=== PATIENT | male | born 1945 | race Caucasian/White ===

== ENCOUNTER → 2020-07-09 14:33 | Outpatient (CLI) | payer MEDICARE, OTHER, SELFPAY ==
--- NOTE | 2020-07-09 14:36 | DI.RAD.S_ITS ---
PROCEDURE: XR LUMBAR SPINE 2-3V INDICATIONS: Spinal arthritis TECHNIQUE: 3 views of the lumbar spine were acquired. COMPARISON: None. FINDINGS: Bones: 5 xra-lvi-nvzboik vertebrae are present. There is normal bony alignment. No vertebral body compression fractures. No suspicious bony lesions. There is disc space narrowing and endplate degenerative changes at L4-5. There is facet arthrosis in the lower lumbar spine. Soft tissues: Overlying bowel gas pattern is normal. No suspicious soft tissue calcifications. The aorta has atherosclerotic calcifications. IMPRESSION: 1. Degenerative disc disease at L4-5. 2. Facet arthrosis at L4-5 and L5-S1. Dictated by: Manoj Velasquez M.D. on 07/09/2020 at 18:28 Approved by: Manoj Velasquez M.D. on 07/09/2020 at 18:29
== END ==
PROVIDERS: PCP Student in an Organized Health Care Education/Training Program; Referring Provider Student in an Organized Health Care Education/Training Program; Visit Provider Student in an Organized Health Care Education/Training Program
DX: M81.0 Age-related osteoporosis without current pathological fracture (principal)
CPT/HCPCS: 72100

== ENCOUNTER 2020-08-11 09:28 | Day surgery (SDC) | payer MEDICARE, OTHER, SELFPAY ==
[2020-08-04 14:03] VITALS: BMI 24.0
[2020-08-11] VITALS (11 sets, daily range): BP systolic 92–124; BP diastolic 60–80; PULSE 78–90; RESP 12–20; TEMP 36.3–36.7; O2SAT 92–98; BMI 24.0
[2020-08-11] MEDS: LACTATED RINGERS 1,000 ML 42 ML IV (09:49)
[2020-08-11 10:04] LABS: COVID19 -Nasal RAPID Negative (Negative)
--- NOTE | 2020-08-11 11:10 | PM.PREOP ---
Pre-operative Note Interval Note History & Physical reviewed/Exam performed by Physician: Yes Changes to H&P: No
[2020-08-11] MEDS: CLINDAMYCIN 900 MG/50 ML PIGGYBACK 50 MG IV (11:35)
--- NOTE | 2020-08-11 11:52 | SUR.OPER ---
Supine on padded OR bed, head on pillow, arms secured on padded arm boards at <90 degrees abduction, legs uncrossed, safety belt at thigh, tape over blanket over lower legs, gel pad under bilateral heels.
[2020-08-11] MEDS: BUPIVACAINE 0.5% (PF) VIAL 30 ML INJ (11:56)
--- NOTE | 2020-08-11 13:04 | P.OP_ITS ---
Operative Date/Time/Diagnoses Date of procedure: 08/11/20 Time of procedure: 13:04 Pre-op diagnosis: Right inguinal hernia Post-op diagnosis: same Procedure & Clinicians Procedure: Open right inguinal hernia repair with mesh Same procedure as scheduled: Yes Indications: Reducible inguinal hernia Surgeon: Mariano Smart Yes if Unassisted: Yes Anesthesia Type: General Operative Notes Findings: Direct floor defect. No indirect hernia Estimated Blood Loss (mL): 20 Procedure in detail: The patient was placed supine on the table and bilateral lower extremity compression devices were applied. Anesthesia was induced they were intubated with an LMA and received 2g of Ancef. A time-out was performed. They were prepped and draped in sterile fashion. The right external inguinal ring and the anterior superior iliac crest were identified and marked. 1 finger breath above the inguinal ligament the skin was infiltrated with 0.25% bupivacaine. The skin incision was made here and the subcutaneous tissues were divided with electrocautery exposing the external oblique aponeurosis which was then opened along the direction of its fibers. Using blunt dissection the internal oblique aporneurosis was from the external oblique upper leaflet to identify the iliohypogastric nerve. Using a kittner the cord was c arefully dissected away from the inguinal canal adjacent to the pubic tubercle. The cord including the vas deferens, testicular bloody supply, ilioguinal and genital nerve were encircled with a [place] drain. A large direct floor defect was identified and it was reduced into the abdomen and the internal oblique aporneuorsis was approximated to the inguinal ligament with Ethibond suture to reapproximate the floor over a plug of mesh. The cremasteric fibers surrounding the cord were divided using electrocautery adjacent to the internal ring.. The vas deferens and the testicular vessels were preserved and protected. There was no indirect hernia. I selected a 7x 15 cm lightweight Pro Loop hernia mesh. The inferior medial aspect of the mesh was anchored to insertion of the rectus muscle to the pubic tubercle such that there was approximately 2 cm of tubercle overlap with Ethibond and then was run continuously along the inferior edge of the mesh to the shelving edge of the inguinal ligament. Interrupted 3 0 Vicryl suture was used to anchor the superior aspect of the mesh to the conjoined tendon in several places. The tails were then reapproximated loosely around the spermatic cord. The tails of the mesh were then tucked under the external oblique aponeurosis. The repair was checked for hemostasis. The wound was irrigated with sterile saline. The external oblique aponeurosis was reapproximated in a running fashion using 3 0 Vicryl. The subcutaneous tissues were reapproximated with 3 0 Vicryl skin closed with 4 0 Monocryl followed by the application of Dermabond. At the end of the operation I ensured that both testicles were within the scrotum. The sponge instrument count at the end operation was correct. The patient emerged from anesthesia was extubated and tr ansferred to the postoperative care unit in stable condition. A total of 30 ml of of 0.25% bupivicaine was used to infiltrate the skin. Complications: none Post-operative Condition: stable Disposition: same day surgery
[2020-08-11] MEDS: OXYCODONE IR 5 MG TABLET PO (13:07)
[2020-08-11] MEDS: ACETAMINOPHEN 325 MG TABLET 650 MG PO (13:07)
[2020-08-11] MEDS: ONDANSETRON 4 MG/2 ML INJ IV (13:34)
== END 2020-08-11 13:54 | disposition home or self-care (01) ==
PROVIDERS: PCP Student in an Organized Health Care Education/Training Program; Referring Provider Surgery; Visit Provider Surgery
PROC: (CPT 49505; principal; 2020-08-11 10:45)
DX: K40.90 Unilateral inguinal hernia, without obstruction or gangrene, not specified as recurrent (principal); Z20.822 Contact with and (suspected) exposure to COVID-19; I25.10 Atherosclerotic heart disease of native coronary artery without angina pectoris
CPT/HCPCS: 49505; 87635; C1781; J1100; J1885; J2250; J2405; J2704; J3010

== ENCOUNTER → 2020-09-18 14:39 | Outpatient (CLI) | payer MEDICARE, OTHER, SELFPAY ==
[2020-09-18 15:31] LABS: COVID19 -Nasal RAPID Negative (Negative)
== END ==
PROVIDERS: PCP Student in an Organized Health Care Education/Training Program; Visit Provider Physician Assistant
DX: Z20.822 Contact with and (suspected) exposure to COVID-19 (principal); R05 Cough
CPT/HCPCS: 87635

== ENCOUNTER → 2021-10-26 09:08 | Outpatient (CLI) | payer MEDICARE, OTHER, SELFPAY ==
--- NOTE | 2021-10-26 09:09 | DI.ECHO.S_ITS ---
[facility] +---------+ [facility] +---------+ : : [address] : : : : [id number] : : : : Phone: [phone]+ Echocardiogram Report + + :Name: RIC TINOCO Study Date: 10/26/2021 Height: 63 in : :[facility] ReadingLocation: Weight: 138 lb : : Gender: Male BSA: 1.7 m2 : :: 1945 Age: 76 yrs BP: 139/88 mmHg: :Reason For Study: DYPSNEA : :Ordering Physician: EMELYN, : :HIREN Performed By: Pam Hester : :Referring: HIREN DUNAWAY : + + Interpretation Summary The ejection fraction is estimated to be 55-60%. There are no obvious focal wall motion abnormalities noted but poor endocardial definition reduces the sensitivity for the detection of such. There is mild tricuspid regurgitation. The right ventricular systolic pressure is estimated to be at least 26 mmHg based on an estimated right atrial pressure of 3 mm Hg. Procedure: A two-dimensional transthoracic echocardiogram with color flow and Doppler was performed. The study quality was technically adequate. There is no prior echocardiogram noted for this patient. The patient was in sinus rhythm with heart rates between 73-83 bpm during the exam. Left Ventricle: The left ventricular cavity is small. There is normal left ventricular wall thickness. The ejection fraction is estimated to be 55-60%. There are no obvious focal wall motion abnormalities noted but poor endocardial definition reduces the sensitivity for the detection of such. Right Ventricle: The right ventricle is normal in size and function. Atria: The left atrial size is normal. Right atrial size is normal. There is no Doppler evidence for an interatrial shunt. Mitral Valve: The mitral valve is normal in structure and function. There is trace mitral regurgitation. Aortic Valve: The aortic valve is trileaflet. The aortic valve opens well. There is no aortic valve stenosis. No aortic regurgitation is present. Tricuspid Valve: The tricuspid valve is normal in structure and function. There is mild tricuspid regurgitation. The right ventricular systolic pressure is estimated to be at least 26 mmHg based on an estimated right atrial pressure of 3 mm Hg. Pulmonic Valve: The pulmonic valve is not well visualized. There is no pulmonic valvular regurgitation. Great Vessels: The aortic root is normal size. The dimensions of the ascending aorta are normal. The IVC is of normal diameter and collapses greater than 50% with a sniff. This suggests a low right atrial pressure of 3 mm Hg. Pericardium/ Pleura There is no pericardial effusion. There is no pleural effusion. MMode/2D Measurements & Calculations LVIDd: 3.8 cm LVOT diam: 2.0 cm LVIDs: 2.9 cm Ao root diam: 3.7 cm FS: 25.1 % asc Aorta Diam: 3.1 cm IVSd: 1.0 cm Ao Arch Diam (Prox Trans): 2.3 cm LVPWd: 0.91 cm LV tarn. diameter/BSA (cm/m^2): 2.3 LV sys. diameter/BSA (cm/m^2): 1.7 LA A2 area: 13.5 cm2 RA long axis: 4.3 cm LA A4 area: 13.6 cm2 RA area: 12.7 cm2 LA length (vol): 4.5 cm RA vol: 31.7 ml LA vol: 34.9 ml RA : 19.2 ml/m2 LA vol index: 21.2 ml/m2 IVC diam: 2.0 cm RVD1 (basal): 3.7 cm RVD2 (mid): 3.0 cm TAPSE: 1.8 cm Doppler Measurements & Calculations Ao V2 max: 114.4 cm/sec LVOT Max Alonso: 95.2 cm/sec Ao V2 mean: 81.0 cm/sec LV V1 max P.6 mmHg Ao max P.2 mmHg LV V1 VTI: 19.5 cm Ao mean P.8 mmHg EDDI(I,D): 2.1 cm2 Ao V2 VTI: 27.7 cm EDDI(V,D): 2.5 cm2 sev ratio: 0.70 EDDI indexed to BSA (cm^2/m^2): 1.3 MV E max alonso: 76.1 cm/sec TR max alonso: 240.4 cm/sec MV A max alonso: 101.3 cm/sec TR max P.1 mmHg MV E/A: 0.75 PA V2 max: 81.1 cm/sec Med Peak E' Alonso: 7.2 cm/sec PA V2 mean: 55.5 cm/sec E/E' med: 10.6 PA mean P.4 mmHg Lat Peak E' Alonso: 8.1 cm/sec PA pr(Accel): 36.2 mmHg E/E' lat: 9.4 E/e' average: 10.0 MV dec time: 0.24 sec SV(LVOT): 58.8 ml Reading Physician:04:23 PM
== END ==
PROVIDERS: PCP Student in an Organized Health Care Education/Training Program; Referring Provider Student in an Organized Health Care Education/Training Program; Visit Provider Student in an Organized Health Care Education/Training Program
DX: I25.119 Atherosclerotic heart disease of native coronary artery with unspecified angina pectoris (principal); R06.09 Other forms of dyspnea; I07.1 Rheumatic tricuspid insufficiency
CPT/HCPCS: 93306

== ENCOUNTER 2022-04-18 12:42 | Emergency (ER) | payer MEDICARE, OTHER, SELFPAY ==
[2022-04-18 12:54] VITALS: BP 133/78; PULSE 111; RESP 28; TEMP 37; O2SAT 92; BMI 23.9
--- NOTE | 2022-04-18 12:59 | DI.RAD.S_ITS ---
PROCEDURE: XR CHEST 1V INDICATIONS: Shortness of breath TECHNIQUE: One view of the chest was acquired. COMPARISON: None. FINDINGS: Surgical changes and devices: Left upper quadrant clips. Lungs and pleura: Lungs are clear. No pleural effusions or pneumothorax. Mediastinum: Mediastinal contours appear normal. Heart size is normal. Bones and chest wall: No suspicious bony lesions. Overlying soft tissues appear unremarkable. IMPRESSION: No evidence acute pulmonary process. Dictated by: Miguel Campoverde M.D. on 04/18/2022 at 13:25 Approved by: Miguel Campoverde M.D. on 04/18/2022 at 13:25
[2022-04-18] MEDS: SODIUM CHLORIDE 0.9% 1,000 ML 1000 ML IV (13:40)
[2022-04-18 13:49] LABS: Add Manual Diff / Slide Review NO; Basophils Absolute Auto 100 /uL (0-100); Basophils Percent Auto 0.2 % (0-2); Eosinophils Absolute Auto 100 /uL (0-450); Eosinophils Percent Auto 0.7 % (2-4); Hematocrit 38.6 % (41-53); Lymphocytes Absolute Auto 12200 /uL (1100-4500); Lymphocytes Percent Auto 57.2 % (25-40); Mean Corpuscular HGB Conc 33.6 % (30-36); Mean Corpuscular Hemoglobin 30.6 PG (26-34); Mean Corpuscular Volume 91.2 fL (80-100); Monocytes Absolute Auto 500 /uL (0-900); Monocytes Percent Auto 2.4 % (3-14); Neutrophils Absolute Auto 8400 /uL (1500-7000); Neutrophils Percent Auto 39.5 % (50-75); Platelet Count 192 X10^3/uL (150-400); Red Blood Cell Count 4.24 X10^6/uL (4.5-5.9); Red Cell Distribution Width 12.6 % (11.6-14.8); White Blood Cell Count 21.4 X10^3/uL (4.5-11.0)
[2022-04-18 13:57] LABS: INR 1.1 (0.9-1.3); Prothrombin Time 13.1 SECONDS (10.1-12.7)
[2022-04-18 14:00] LABS: PTT Partial Thromboplastin Tim 29 SECONDS (26-36)
[2022-04-18 14:01] LABS: Lactate (Lactic Acid) 1.3 mmol/L (0.7-2.1)
[2022-04-18 14:04] LABS: Alanine Aminotransferase 22 IU/L (<50); Albumin Globulin Ratio 1.3 (1.0-2.8); Alkaline Phosphatase 162 U/L (38-126); Aspartate Aminotransferase 27 IU/L (17-59); BUN Creatinine Ratio 16.1 (6-22); Bilirubin Total 0.6 mg/dL (0.2-1.3); Blood Urea Nitrogen 10 mg/dL (9-20); Calcium 8.5 mg/dL (8.4-10.2); Carbon Dioxide 24 mmol/L (22-32); Chloride 94 mmol/L (98-107); Creatine Kinase 113 U/L (55-170); Estimated Glomerular Filt Rate > 60 mL/min (>60); Globulin 3.2 g/dL (1.7-4.1); Glucose 219 mg/dL (80-110); HEMOLYSIS < 15 (0-50); Lipase 16 U/L (23-300); Potassium 3.9 mmol/L (3.4-5.1); Sodium 131 mmol/L (137-145); Total Protein 7.2 g/dL (6.3-8.2)
[2022-04-18 14:15] LABS: NT-proBNP (BNP-Adult 18+) 98 pg/mL (<450); Troponin I < 0.012 ng/mL (0.01-0.034)
[2022-04-18 14:17] LABS: Troponin I < 0.012 ng/mL (0.01-0.034)
[2022-04-18 14:20] LABS: CKMB % Relative Index 1.3 % (1.5-5.0); Creatine Kinase MB 1.51 ng/mL (<2.37)
[2022-04-18 14:22] LABS: Procalcitonin 0.25 ng/mL (<0.5)
[2022-04-18 14:32] LABS: Adenovirus Not Detected (Not Detect); B. parapertussis Not Detected (Not Detecte); Bordetella pertussis Not Detected (Not Detecte); Chlamydophila pneumoniae Not Detected (Not Detect); Coronavirus 229E Not Detected (Not Detect); Coronavirus HKU1 Not Detected (Not Detect); Coronavirus NL 63 Not Detected (Not Detect); Coronavirus OC43 Not Detected (Not Detect); Human Metapneumovirus Detected (Not Detect); Human Rhinovirus/Enterovirus Not Detected (Not Detect); Influenza A Not Detected (Not Detect); Influenza B Not Detected (Not Detect); Mycoplasma pneumoniae Not Detected (Not Detect); Parainfluenza Virus 1 Not Detected (Not Detect); Parainfluenza Virus 2 Not Detected (Not Detect); Parainfluenza Virus 3 Not Detected (Not Detect); Parainfluenza Virus 4 Not Detected (Not Detect); Respiratory Syncytial Virus Not Detected (Not Detect); SARS- CoV-2 Not Detected (Not Detecte)
[2022-04-18] MEDS: PIPERACILLIN/TAZO 4.5 GM in SODIUM CHLORIDE 0.9% 100 ML IV (15:02)
[2022-04-18] MEDS: SODIUM CHLORIDE 0.9% 1,837.05 ML 612.35 ML IV (15:02)
[2022-04-18 15:05] LABS: Amorphous Sediment Urine 1+; Bacteria Urine None Seen; Culture Indicated Urine Cult Not Indicated; Mucus Urine 1+ (Negative); RBC Urine 1-5/HPF (0-5/HPF); WBC Urine None Seen (0-5/HPF)
--- NOTE | 2022-04-18 15:17 | DI.CT.S_ITS ---
PROCEDURE: CT CHEST ABD PEL W CON INDICATIONS: sepsis TECHNIQUE: After the administration of intravenous contrast, 5 mm thick sections acquired from the lung apices to the symphysis. 5 mm coronal and sagittal reformats were performed, with additional 7 mm MIP reformats through the lungs. For radiation dose reduction, the following was used: automated exposure control, adjustment of mA and/or kV according to patient size. COMPARISON: None. FINDINGS: Image quality: Excellent. CHEST: Lungs and pleura: A few solid pulmonary nodules are present, largest measuring 5 millimeters in the right middle lobe (5/207). Confluent centrilobular emphysema. Mediastinum: Borderline enlarged mediastinal lymph nodes. Moderate coronary calcifications. No hiatal hernia. Heart size is within normal limits. Chest wall: No axillary or supraclavicular adenopathy by size criteria. Thyroid gland is unremarkable . ABDOMEN: Solid organs: Liver is normal in size and enhancement. Gallbladder is absent . Biliary system is non dilated. Pancreas enhances normally. Spleen is normal in size and enhancement. No adrenal nodules. Kidneys demonstrate normal size and enhancement, without hydronephrosis. Peritoneum and bowel: Bowel loops demonstrate normal wall thickness and caliber. No free fluid or air. Prior Whipple. Nodes and vessels: No retroperitoneal or mesenteric adenopathy by size criteria. Aorta and inferior vena cava are normal in size. Miscellaneous: Small ventral wall hernia containing fat. Surgical clips within the abdomen. PELVIS: Genitourinary: Bladder wall thickness is normal. Miscellaneous: No inguinal hernias or adenopathy. Bones: No suspicious bony lesions. No vertebral body compression fractures. IMPRESSION: No evidence of acute infection. Scattered pulmonary nodules, largest measuring 5 millimeters. These are nonspecific in the presumed history of malignancy. Dictated by: Kristian Delong M.D. on 04/18/2022 at 15:58 Approved by: Kristian Delong M.D. on 04/18/2022 at 16:10
[2022-04-18] MEDS: VANCOMYCIN 1,000 MG/200 ML PIGGYBACK 200 MG IV (15:41)
--- NOTE | 2022-04-18 15:55 | ED_ITS ---
HPI - SOB/Dyspnea <Samuel Rivera PA-C - Last Filed: 04/18/22 20:10> General Chief Complaint: Shortness of Breath/Dyspnea Stated Complaint: SOB, Cough x4days Time Seen by Provider: 04/18/22 13:08 Mode of arrival: Family Vehicle History of Present Illness HPI Narrative: 77-year-old male with past medical history pancreatitis, coronary artery disease, stable angina presents to the ED with 4 days of fever, chills, diarrhea, shortness of breath, cough. Patient denies chest pain, nausea, vomiting, dysuria, lightheadedness, dizziness, syncope. Patient endorses 8-9 episodes of diarrhea a day. Endorses reduced appetite. Related Data Home Medications Medication Instructions Recorded Confirmed multivitamin 1 tab PO DAILY 07/22/20 04/14/22 omega-3 fatty acids 1,000 mg 1,000 mg PO DAILY 07/22/20 04/14/22 capsule (Fish Oil Concentrate) nitroglycerin 0.3 mg sublingual 0.3 mg sublingual Q5M PRN 09/07/21 04/14/22 tablet Previous Rx's Medication Instructions Recorded benzonatate 200 mg capsule 200 mg PO TID PRN cough #30 caps 04/18/22 Allergies Allergy/AdvReac Type Severity Reaction Status Date / Time ciprofloxacin [From Cipro] Allergy Unknown Verified 04/18/22 12:58 hydroxyzine [From Vistaril] Allergy Unknown Verified 04/18/22 12:58 metronidazole [From Flagyl] Allergy Unknown Verified 04/18/22 12:58 Penicillins Allergy Unknown Verified 04/18/22 12:58 promethazine AdvReac Intermediate Confusion Verified 04/18/22 12:58 levofloxacin [From Levaquin] AdvReac Mild Verified 04/18/22 12:58 Review of Systems <Samuel Rivera PA-C - Last Filed: 04/18/22 20:10> Review of Systems ROS Unobtainable: All systems reviewed & are unremarkable except as noted in HPI and below Constitutional Constitutional: Reports chills, Reports fatigue, Reports fever(s), Denies frequent falls, Denies lethargy and Denies weakness Eyes Eyes: Denies change in vision, Denies eye discharge, Denies irritation and Denies loss of vision ENT Ears, Nose, Mouth, and Throat: Denies change in voice, Denies dizziness, Denies neck pain, Denies sore throat and Denies throat swelling Cardiovascular Cardiovascular: Denies chest pain, Denies irregular heart rhythm, Denies lightheadedness, Denies palpitations, Reports dyspnea, Denies dyspnea on exertion and Denies orthopnea Respiratory Respiratory: Reports cough, Reports dyspnea, Denies dyspnea on exertion and Denies wheezing Gastrointestinal Gastrointestinal: Denies abdominal pain, Denies change in bowel habits, Reports diarrhea, Denies nausea and Denies vomiting Genitourinary Genitourinary: Denies hematuria, Denies dysuria, Denies flank pain, Denies urinary incontinence and Denies urinary urgency Musculoskeletal Musculoskeletal: Denies back pain, Denies muscle weakness, Denies neck pain, Denies numbness and Denies tingling Integumentary/Breasts Skin/Breast: Denies pruritus, Denies erythema, Denies rash and Denies wounds Neurologic Neurologic: Denies behavioral changes, Denies confusion, Denies dizziness, Denies frequent falls, Denies loss of vision, Denies numbness, Denies tingling and Denies weakness Psychiatric Psychiatric: Denies anxiety, Denies behavioral changes, Denies confusion, Denies depression, Denies homicidal ideation and Denies suicidal ideation Endocrine Endocrine: Reports fatigue, Denies flushing and Denies palpitations Hematologic/Lymphatic Hematologic/Lymphatic: Denies easy bruising Allergic/Immunologic Allergic/Immunologic: Denies urticaria, Denies throat swelling and Denies wheezing Patient History <Samuel Rivera PA-C - Last Filed: 04/18/22 20:10> Medical History Anemia (~2004) Cataracts, bilateral (~2013) Chicken pox (~195) Chronic back pain (~2011) Coronary artery disease (~2004) Direct inguinal hernia of right side Eczema (~1999) Kidney stones (~2004) Measles Mumps Osteoarthritis of lumbar spine Pancreas [place] pancreas Pancreatic cancer (~1999) Pancreatitis (~1999) Panic attacks Recurrent pancreatitis Shift work sleep disorder Shoulder pain (~2011) Skin cancer (~2004) Tinnitus (~2009) Surgical History Anesthesia History of cholecystectomy (~1999) History of right knee surgery (~2019) History of shoulder surgery (~1977) History of surgery (~2000) S/P left rotator cuff repair (~2013) Family History Father Cancer Mother Diabetes mellitus Dementia History of heart disease Hyperlipidemia Hypertension Mental health problem Stroke Gallstones Breast cancer Sister Overweight Sister Overweight Melanoma Knee problem Grandmother Cancer Hypertension Mental health problem Grandfather No problems noted. Grandmother History of heart disease Hypertension Stroke Son Mental health problem Depression PTSD (post-traumatic stress disorder) Social History marital status: unknown household members: none occupational status: previously employed Smoking Status: Former smoker alcohol intake: never Smoking Status: Former smoker Substance Use Type: does not use Exam <Samuel Rivera PA-C - Last Filed: 04/18/22 20:10> Narrative Exam Narrative: Const General:?cooperative, healthy appearing and comfortable HENMS Head:?normal to inspection Ears:?hearing grossly normal bilaterally Nose:?external nose normal Face and sinus:?normal facial exam and sinuses nontender Mouth:?oral mucosae normal Throat:?posterior oropharynx normal Eyes General:?appearance normal, both eyes and all related structures Neck Neck:?normal visual inspection and no lymphadenopathy noted Resp Effort & Inspection:?normal respiratory effort Auscultation:?clear to auscultation bilaterally Cardio Rate:?regular rate Rhythm:?regular rhythm GI Abdomen is soft, nondistended. Mildly tender to palpation in the right upper quadrant. Neuro General:?patient alert, patient awake and patient oriented x3 Initial Vital Signs Initial Vital Signs: Vital Signs Temperature 98.6 F 04/18/22 12:54 Pulse Rate 111 H 04/18/22 12:54 Respiratory Rate 28 H 04/18/22 12:54 Blood Pressure 133/78 04/18/22 12:54 Pulse Oximetry 92 04/18/22 12:54 Oxygen Delivery Method Room Air 04/18/22 12:54 <Artur Camacho DO - Last Filed: 04/25/22 07:33> Initial Vital Signs Initial Vital Signs: Vital Signs Temperature 98.6 F 04/18/22 12:54 Pulse Rate 111 H 04/18/22 12:54 Respiratory Rate 28 H 04/18/22 12:54 Blood Pressure 133/78 04/18/22 12:54 Pulse Oximetry 92 04/18/22 12:54 Oxygen Delivery Method Room Air 04/18/22 12:54 Course <Samuel Rivera PA-C - Last Filed: 04/18/22 20:10> Orders Ordered: Discontinued Medications Sodium Chloride (Normal Saline 0.9%) 1,000 mls @ 1,000 mls/hr IV BOLUS ONE Stop: 04/18/22 14:01 Last Infusion: 04/18/22 14:46 Dose: 0 mls/hr Documented By: Admin: 04/18/22 13:40 Dose: 1,000 mls/hr Documented By: ASHLEIGH Piperacillin Sod/Tazobactam (Sod 4.5 gm/ Sodium Chloride) 100 mls @ 200 mls/hr IV NOW ONE Stop: 04/18/22 14:31 Last Infusion: 04/18/22 15:40 Dose: 0 mls/hr Documented By: Admin: 04/18/22 15:02 Dose: 200 mls/hr Documented By: ANNAMARIE Vancomycin HCl (Vancomycin) 1,000 mg in 200 mls @ 200 mls/hr IV NOW ONE Stop: 04/18/22 15:30 Last Infusion: 04/18/22 16:52 Dose: 0 mls/hr Documented By: Admin: 04/18/22 15:41 Dose: 200 mls/hr Documented By: LIVAN Sodium Chloride (Normal Saline 0.9%) 1,837.05 mls @ 612.35 mls/hr 30 ml/kg infuse over 3 hr (1837.05 ml) IV NOW ONE Stop: 04/18/22 17:31 Last Infusion: 04/18/22 16:50 Dose: 0 mls/hr Documented By: Admin: 04/18/22 15:02 Dose: 612.35 mls/hr Documented By: ANNAMARIE Ondansetron HCl (Ondansetron 4 Mg/2 Ml Inj) 4 mg IV NOW PRN PRN Reason: Nausea And Vomiting Vital Signs Vital signs: Vital Signs - 8 hr 04/18/22 12:54 04/18/22 16:19 04/18/22 17:17 Temperature 98.6 F Pulse Rate 111 H 103 H 98 H Respiratory Rate 28 H 18 20 Blood Pressure 133/78 129/70 130/64 Pulse Oximetry 92 95 93 Oxygen Delivery Method Room Air Room Air Room Air <Artur Camacho DO - Last Filed: 04/25/22 07:33> Orders Ordered: Discontinued Medications Sodium Chloride (Normal Saline 0.9%) 1,000 mls @ 1,000 mls/hr IV BOLUS ONE Stop: 04/18/22 14:01 Last Infusion: 04/18/22 14:46 Dose: 0 mls/hr Documented By: Admin: 04/18/22 13:40 Dose: 1,000 mls/hr Documented By: ASHLEIGH Piperacillin Sod/Tazobactam (Sod 4.5 gm/ Sodium Chloride) 100 mls @ 200 mls/hr IV NOW ONE Stop: 04/18/22 14:31 Last Infusion: 04/18/22 15:40 Dose: 0 mls/hr Documented By: Admin: 04/18/22 15:02 Dose: 200 mls/hr Documented By: ANNAMARIE Vancomycin HCl (Vancomycin) 1,000 mg in 200 mls @ 200 mls/hr IV NOW ONE Stop: 04/18/22 15:30 Last Infusion: 04/18/22 16:52 Dose: 0 mls/hr Documented By: Admin: 04/18/22 15:41 Dose: 200 mls/hr Documented By: LIVAN Sodium Chloride (Normal Saline 0.9%) 1,837.05 mls @ 612.35 mls/hr 30 ml/kg infuse over 3 hr (1837.05 ml) IV NOW ONE Stop: 04/18/22 17:31 Last Infusion: 04/18/22 16:50 Dose: 0 mls/hr Documented By: Admin: 04/18/22 15:02 Dose: 612.35 mls/hr Documented By: ANNAMARIE Ondansetron HCl (Ondansetron 4 Mg/2 Ml Inj) 4 mg IV NOW PRN PRN Reason: Nausea And Vomiting Vital Signs Vital signs: Vital Signs - 8 hr 04/18/22 12:54 04/18/22 16:19 04/18/22 17:17 Temperature 98.6 F Pulse Rate 111 H 103 H 98 H Respiratory Rate 28 H 18 20 Blood Pressure 133/78 129/70 130/64 Pulse Oximetry 92 95 93 Oxygen Delivery Method Room Air Room Air Room Air MDM - SOB/Dyspnea <Samuel Rivera PA-C - Last Filed: 04/18/22 20:10> Lab Data 04/18/22 13:20 04/18/22 13:20 Labs: Lab Results 04/18/22 04/18/22 04/18/22 Range/Units 13:20 13:20 13:20 WBC 21.4 H (4.5-11.0) X10^3/uL RBC 4.24 L (4.5-5.9) X10^6/uL Hgb 13.0 L (13.5-17.5) g/dL Hct 38.6 L (41-53) % MCV 91.2 (80-100) fL MCH 30.6 (26-34) PG MCHC 33.6 (30-36) % RDW 12.6 (11.6-14.8) % Plt Count 192 (150-400) X10^3/uL Neut % (Auto) 39.5 L (50-75) % Lymph % (Auto) 57.2 H (25-40) % [place] % (Auto) 2.4 L (3-14) % Eos % (Auto) 0.7 L (2-4) % Baso % (Auto) 0.2 (0-2) % Neut # (Auto) 8400 H (6966-0975) /uL Lymph # (Auto) 38087 H (6583-4136) /uL [place] # (Auto) 500 (0-900) /uL Eos # (Auto) 100 (0-450) /uL Baso # (Auto) 100 (0-100) /uL PT (10.1-12.7) SECONDS INR (0.9-1.3) APTT (26-36) SECONDS Sodium 131 L (137-145) mmol/L Potassium 3.9 (3.4-5.1) mmol/L Chloride 94 L (98-107) mmol/L Carbon Dioxide 24 (22-32) mmol/L BUN 10 (9-20) mg/dL Creatinine 0.62 L (0.66-1.25) mg/dL Estimated GFR > 60 (>60) mL/min BUN/Creatinine Ratio 16.1 (6-22) Glucose 219 H (80-110) mg/dL Lactate 1.3 (0.7-2.1) mmol/L Calcium 8.5 (8.4-10.2) mg/dL Total Bilirubin 0.6 (0.2-1.3) mg/dL AST 27 (17-59) IU/L ALT 22 (<50) IU/L Alkaline Phosphatase 162 H (38-126) U/L Total Creatine Kinase (55-170) U/L CK-MB (CK-2) (<2.37) ng/mL CK-MB (CK-2) Rel Index (1.5-5.0) % Troponin I < 0.012 (0.01-0.034) ng/mL NT-Pro-B Natriuret Pep 98 (<450) pg/mL Total Protein 7.2 (6.3-8.2) g/dL Albumin 4.0 (3.5-5.0) g/dL Globulin 3.2 (1.7-4.1) g/dL Albumin/Globulin Ratio 1.3 (1.0-2.8) Lipase (23-300) U/L Procalcitonin (<0.5) ng/mL Urine RBC (0-5/HPF) Urine WBC (0-5/HPF) Amorphous Sediment Urine Bacteria (None) Urine Mucus (Negative) Ur Culture Indicated? Chlamy pneumoniae PCR (Not Detect) Adenovirus (PCR) (Not Detect) B. pertussis DNA (PCR) (Not Detecte) B.parapertussis DNA PCR (Not Detecte) Coronavirus OC43 (PCR) (Not Detect) Coronavirus HKU1 (PCR) (Not Detect) Coronavirus 229E (PCR) (Not Detect) SARS-CoV-2 (PCR) (Not Detecte) Coronavirus NL63 (PCR) (Not Detect) Human Metapneumovir PCR (Not Detect) Influenza Type A (PCR) (Not Detect) Influenza Type B (PCR) (Not Detect) M. pneumoniae (PCR) (Not Detect) Parainfluenza 1 (PCR) (Not Detect) Parainfluenza 2 (PCR) (Not Detect) Parainfluenza 3 (PCR) (Not Detect) Parainfluenza 4 (PCR) (Not Detect) RSV (PCR) (Not Detect) Entero/Rhino (PCR) (Not Detect) 04/18/22 04/18/22 04/18/22 Range/Units 13:20 13:20 13:40 WBC (4.5-11.0) X10^3/uL RBC (4.5-5.9) X10^6/uL Hgb (13.5-17.5) g/dL Hct (41-53) % MCV (80-100) fL MCH (26-34) PG MCHC (30-36) % RDW (11.6-14.8) % Plt Count (150-400) X10^3/uL Neut % (Auto) (50-75) % Lymph % (Auto) (25-40) % [place] % (Auto) (3-14) % Eos % (Auto) (2-4) % Baso % (Auto) (0-2) % Neut # (Auto) (5962-1983) /uL Lymph # (Auto) (1638-9111) /uL [place] # (Auto) (0-900) /uL Eos # (Auto) (0-450) /uL Baso # (Auto) (0-100) /uL PT 13.1 H (10.1-12.7) SECONDS INR 1.1 (0.9-1.3) APTT 29 (26-36) SECONDS Sodium (137-145) mmol/L Potassium (3.4-5.1) mmol/L Chloride (98-107) mmol/L Carbon Dioxide (22-32) mmol/L BUN (9-20) mg/dL Creatinine (0.66-1.25) mg/dL Estimated GFR (>60) mL/min BUN/Creatinine Ratio (6-22) Glucose (80-110) mg/dL Lactate (0.7-2.1) mmol/L Calcium (8.4-10.2) mg/dL Total Bilirubin (0.2-1.3) mg/dL AST (17-59) IU/L ALT (<50) IU/L Alkaline Phosphatase (38-126) U/L Total Creatine Kinase 113 (55-170) U/L CK-MB (CK-2) 1.51 (<2.37) ng/mL CK-MB (CK-2) Rel Index 1.3 L (1.5-5.0) % Troponin I < 0.012 (0.01-0.034) ng/mL NT-Pro-B Natriuret Pep (<450) pg/mL Total Protein (6.3-8.2) g/dL Albumin (3.5-5.0) g/dL Globulin (1.7-4.1) g/dL Albumin/Globulin Ratio (1.0-2.8) Lipase 16 L (23-300) U/L Procalcitonin 0.25 (<0.5) ng/mL Urine RBC (0-5/HPF) Urine WBC (0-5/HPF) Amorphous Sediment Urine Bacteria (None) Urine Mucus (Negative) Ur Culture Indicated? Chlamy pneumoniae PCR Not detected (Not Detect) Adenovirus (PCR) Not detected (Not Detect) B. pertussis DNA (PCR) Not detected (Not Detecte) B.parapertussis DNA PCR Not detected (Not Detecte) Coronavirus OC43 (PCR) Not detected (Not Detect) Coronavirus HKU1 (PCR) Not detected (Not Detect) Coronavirus 229E (PCR) Not detected (Not Detect) SARS-CoV-2 (PCR) Not detected (Not Detecte) Coronavirus NL63 (PCR) Not detected (Not Detect) Human Metapneumovir PCR Detected H (Not Detect) Influenza Type A (PCR) Not detected (Not Detect) Influenza Type B (PCR) Not detected (Not Detect) M. pneumoniae (PCR) Not detected (Not Detect) Parainfluenza 1 (PCR) Not detected (Not Detect) Parainfluenza 2 (PCR) Not detected (Not Detect) Parainfluenza 3 (PCR) Not detected (Not Detect) Parainfluenza 4 (PCR) Not detected (Not Detect) RSV (PCR) Not detected (Not Detect) Entero/Rhino (PCR) Not detected (Not Detect) 04/18/22 Range/Units 14:30 WBC (4.5-11.0) X10^3/uL RBC (4.5-5.9) X10^6/uL Hgb (13.5-17.5) g/dL Hct (41-53) % MCV (80-100) fL MCH (26-34) PG MCHC (30-36) % RDW (11.6-14.8) % Plt Count (150-400) X10^3/uL Neut % (Auto) (50-75) % Lymph % (Auto) (25-40) % [place] % (Auto) (3-14) % Eos % (Auto) (2-4) % Baso % (Auto) (0-2) % Neut # (Auto) (2820-0526) /uL Lymph # (Auto) (1455-6582) /uL [place] # (Auto) (0-900) /uL Eos # (Auto) (0-450) /uL Baso # (Auto) (0-100) /uL PT (10.1-12.7) SECONDS INR (0.9-1.3) APTT (26-36) SECONDS Sodium (137-145) mmol/L Potassium (3.4-5.1) mmol/L Chloride (98-107) mmol/L Carbon Dioxide (22-32) mmol/L BUN (9-20) mg/dL Creatinine (0.66-1.25) mg/dL Estimated GFR (>60) mL/min BUN/Creatinine Ratio (6-22) Glucose (80-110) mg/dL Lactate (0.7-2.1) mmol/L Calcium (8.4-10.2) mg/dL Total Bilirubin (0.2-1.3) mg/dL AST (17-59) IU/L ALT (<50) IU/L Alkaline Phosphatase (38-126) U/L Total Creatine Kinase (55-170) U/L CK-MB (CK-2) (<2.37) ng/mL CK-MB (CK-2) Rel Index (1.5-5.0) % Troponin I (0.01-0.034) ng/mL NT-Pro-B Natriuret Pep (<450) pg/mL Total Protein (6.3-8.2) g/dL Albumin (3.5-5.0) g/dL Globulin (1.7-4.1) g/dL Albumin/Globulin Ratio (1.0-2.8) Lipase (23-300) U/L Procalcitonin (<0.5) ng/mL Urine RBC 1-5/hpf (0-5/HPF) Urine WBC None seen (0-5/HPF) Amorphous Sediment 1+ Urine Bacteria None seen (None) Urine Mucus 1+ H (Negative) Ur Culture Indicated? Cult not indicated Chlamy pneumoniae PCR (Not Detect) Adenovirus (PCR) (Not Detect) B. pertussis DNA (PCR) (Not Detecte) B.parapertussis DNA PCR (Not Detecte) Coronavirus OC43 (PCR) (Not Detect) Coronavirus HKU1 (PCR) (Not Detect) Coronavirus 229E (PCR) (Not Detect) SARS-CoV-2 (PCR) (Not Detecte) Coronavirus NL63 (PCR) (Not Detect) Human Metapneumovir PCR (Not Detect) Influenza Type A (PCR) (Not Detect) Influenza Type B (PCR) (Not Detect) M. pneumoniae (PCR) (Not Detect) Parainfluenza 1 (PCR) (Not Detect) Parainfluenza 2 (PCR) (Not Detect) Parainfluenza 3 (PCR) (Not Detect) Parainfluenza 4 (PCR) (Not Detect) RSV (PCR) (Not Detect) Entero/Rhino (PCR) (Not Detect) Urine Dip Bedside Urine Glucose Negative Bedside Urine Bilirubin - Negative Bedside Urine Ketone +++ 80 Urine Specific [place] 1.015 Bedside Urine Occult Blood - Negative Bedside Urine pH 6.0 Bedside Urine Protein + 30 Bedside Urine Urobilinogen - Negative Bedside Urine Nitrite - Negative Bedside Urine Leukocytes - Negative Esterase MDM Narrative Medical decision making narrative: 77-year-old male with past medical history pancreatitis, coronary artery disease, stable angina presents to the ED with 4 days of fever, chills, diarrhea, shortness of breath, cough. Concern for URI versus pneumonia versus s epsis versus UTI versus other. Will obtain chest x-ray, EKG, labs, respiratory panel, urinalysis. Patient is tachycardic, tachypneic with a white count of 21.4. Patient is sirs positive, no source identified yet. Sepsis protocol initiated with sepsis fluids, blood cultures, antibiotics. Will also obtain CT chest abdomen pelvis. Will reassess. UA without UTI. EKG, chest x-ray with no acute findings. Respiratory panel is positive for human metapneumovirus. CT chest abdomen pelvis shows some pulmonary nodules, but no other acute findings. Patient appears well, is tolerating p.o. well. Vitals are stable. Elevated white count is likely reactive leukocytosis to the human metapneumovirus. Discussed findings with patient. Will discharge home with ED return precautions. ED return precautions discussed with patient. Patient verbalized understanding. Medical records reviewed: Yes <Artur Camacho, DO - Last Filed: 04/25/22 07:33> Lab Data Labs: Lab Results 04/18/22 04/18/22 04/18/22 Range/Units 13:20 13:20 13:20 WBC 21.4 H (4.5-11.0) X10^3/uL RBC 4.24 L (4.5-5.9) X10^6/uL Hgb 13.0 L (13.5-17.5) g/dL Hct 38.6 L (41-53) % MCV 91.2 (80-100) fL MCH 30.6 (26-34) PG MCHC 33.6 (30-36) % RDW 12.6 (11.6-14.8) % Plt Count 192 (150-400) X10^3/uL Neut % (Auto) 39.5 L (50-75) % Lymph % (Auto) 57.2 H (25-40) % [place] % (Auto) 2.4 L (3-14) % Eos % (Auto) 0.7 L (2-4) % Baso % (Auto) 0.2 (0-2) % Neut # (Auto) 8400 H (8902-5696) /uL Lymph # (Auto) 75997 H (5163-6543) /uL [place] # (Auto) 500 (0-900) /uL Eos # (Auto) 100 (0-450) /uL Baso # (Auto) 100 (0-100) /uL PT (10.1-12.7) SECONDS INR (0.9-1.3) APTT (26-36) SECONDS Sodium 131 L (137-145) mmol/L Potassium 3.9 (3.4-5.1) mmol/L Chloride 94 L (98-107) mmol/L Carbon Dioxide 24 (22-32) mmol/L BUN 10 (9-20) mg/dL Creatinine 0.62 L (0.66-1.25) mg/dL Estimated GFR > 60 (>60) mL/min BUN/Creatinine Ratio 16.1 (6-22) Glucose 219 H (80-110) mg/dL Lactate 1.3 (0.7-2.1) mmol/L Calcium 8.5 (8.4-10.2) mg/dL Total Bilirubin 0.6 (0.2-1.3) mg/dL AST 27 (17-59) IU/L ALT 22 (<50) IU/L Alkaline Phosphatase 162 H (38-126) U/L Total Creatine Kinase (55-170) U/L CK-MB (CK-2) (<2.37) ng/mL CK-MB (CK-2) Rel Index (1.5-5.0) % Troponin I < 0.012 (0.01-0.034) ng/mL NT-Pro-B Natriuret Pep 98 (<450) pg/mL Total Protein 7.2 (6.3-8.2) g/dL Albumin 4.0 (3.5-5.0) g/dL Globulin 3.2 (1.7-4.1) g/dL Albumin/Globulin Ratio 1.3 (1.0-2.8) Lipase (23-300) U/L Procalcitonin (<0.5) ng/mL Urine RBC (0-5/HPF) Urine WBC (0-5/HPF) Amorphous Sediment Urine Bacteria (None) Urine Mucus (Negative) Ur Culture Indicated? Chlamy pneumoniae PCR (Not Detect) Adenovirus (PCR) (Not Detect) B. pertussis DNA (PCR) (Not Detecte) B.parapertussis DNA PCR (Not Detecte) Coronavirus OC43 (PCR) (Not Detect) Coronavirus HKU1 (PCR) (Not Detect) Coronavirus 229E (PCR) (Not Detect) SARS-CoV-2 (PCR) (Not Detecte) Coronavirus NL63 (PCR) (Not Detect) Human Metapneumovir PCR (Not Detect) Influenza Type A (PCR) (Not Detect) Influenza Type B (PCR) (Not Detect) M. pneumoniae (PCR) (Not Detect) Parainfluenza 1 (PCR) (Not Detect) Parainfluenza 2 (PCR) (Not Detect) Parainfluenza 3 (PCR) (Not Detect) Parainfluenza 4 (PCR) (Not Detect) RSV (PCR) (Not Detect) Entero/Rhino (PCR) (Not Detect) 04/18/22 04/18/22 04/18/22 Range/Units 13:20 13:20 13:40 WBC (4.5-11.0) X10^3/uL RBC (4.5-5.9) X10^6/uL Hgb (13.5-17.5) g/dL Hct (41-53) % MCV (80-100) fL MCH (26-34) PG MCHC (30-36) % RDW (11.6-14.8) % Plt Count (150-400) X10^3/uL Neut % (Auto) (50-75) % Lymph % (Auto) (25-40) % [place] % (Auto) (3-14) % Eos % (Auto) (2-4) % Baso % (Auto) (0-2) % Neut # (Auto) (5240-5989) /uL Lymph # (Auto) (9853-0652) /uL [place] # (Auto) (0-900) /uL Eos # (Auto) (0-450) /uL Baso # (Auto) (0-100) /uL PT 13.1 H (10.1-12.7) SECONDS INR 1.1 (0.9-1.3) APTT 29 (26-36) SECONDS Sodium (137-145) mmol/L Potassium (3.4-5.1) mmol/L Chloride (98-107) mmol/L Carbon Dioxide (22-32) mmol/L BUN (9-20) mg/dL Creatinine (0.66-1.25) mg/dL Estimated GFR (>60) mL/min BUN/Creatinine Ratio (6-22) Glucose (80-110) mg/dL Lactate (0.7-2.1) mmol/L Calcium (8.4-10.2) mg/dL Total Bilirubin (0.2-1.3) mg/dL AST (17-59) IU/L ALT (<50) IU/L Alkaline Phosphatase (38-126) U/L Total Creatine Kinase 113 (55-170) U/L CK-MB (CK-2) 1.51 (<2.37) ng/mL CK-MB (CK-2) Rel Index 1.3 L (1.5-5.0) % Troponin I < 0.012 (0.01-0.034) ng/mL NT-Pro-B Natriuret Pep (<450) pg/mL Total Protein (6.3-8.2) g/dL Albumin (3.5-5.0) g/dL Globulin (1.7-4.1) g/dL Albumin/Globulin Ratio (1.0-2.8) Lipase 16 L (23-300) U/L Procalcitonin 0.25 (<0.5) ng/mL Urine RBC (0-5/HPF) Urine WBC (0-5/HPF) Amorphous Sediment Urine Bacteria (None) Urine Mucus (Negative) Ur Culture Indicated? Chlamy pneumoniae PCR Not detected (Not Detect) Adenovirus (PCR) Not detected (Not Detect) B. pertussis DNA (PCR) Not detected (Not Detecte) B.parapertussis DNA PCR Not detected (Not Detecte) Coronavirus OC43 (PCR) Not detected (Not Detect) Coronavirus HKU1 (PCR) Not detected (Not Detect) Coronavirus 229E (PCR) Not detected (Not Detect) SARS-CoV-2 (PCR) Not detected (Not Detecte) Coronavirus NL63 (PCR) Not detected (Not Detect) Human Metapneumovir PCR Detected H (Not Detect) Influenza Type A (PCR) Not detected (Not Detect) Influenza Type B (PCR) Not detected (Not Detect) M. pneumoniae (PCR) Not detected (Not Detect) Parainfluenza 1 (PCR) Not detected (Not Detect) Parainfluenza 2 (PCR) Not detected (Not Detect) Parainfluenza 3 (PCR) Not detected (Not Detect) Parainfluenza 4 (PCR) Not detected (Not Detect) RSV (PCR) Not detected (Not Detect) Entero/Rhino (PCR) Not detected (Not Detect) 04/18/22 Range/Units 14:30 WBC (4.5-11.0) X10^3/uL RBC (4.5-5.9) X10^6/uL Hgb (13.5-17.5) g/dL Hct (41-53) % MCV (80-100) fL MCH (26-34) PG MCHC (30-36) % RDW (11.6-14.8) % Plt Count (150-400) X10^3/uL Neut % (Auto) (50-75) % Lymph % (Auto) (25-40) % [place] % (Auto) (3-14) % Eos % (Auto) (2-4) % Baso % (Auto) (0-2) % Neut # (Auto) (1917-5381) /uL Lymph # (Auto) (7308-5192) /uL [place] # (Auto) (0-900) /uL Eos # (Auto) (0-450) /uL Baso # (Auto) (0-100) /uL PT (10.1-12.7) SECONDS INR (0.9-1.3) APTT (26-36) SECONDS Sodium (137-145) mmol/L Potassium (3.4-5.1) mmol/L Chloride (98-107) mmol/L Carbon Dioxide (22-32) mmol/L BUN (9-20) mg/dL Creatinine (0.66-1.25) mg/dL Estimated GFR (>60) mL/min BUN/Creatinine Ratio (6-22) Glucose (80-110) mg/dL Lactate (0.7-2.1) mmol/L Calcium (8.4-10.2) mg/dL Total Bilirubin (0.2-1.3) mg/dL AST (17-59) IU/L ALT (<50) IU/L Alkaline Phosphatase (38-126) U/L Total Creatine Kinase (55-170) U/L CK-MB (CK-2) (<2.37) ng/mL CK-MB (CK-2) Rel Index (1.5-5.0) % Troponin I (0.01-0.034) ng/mL NT-Pro-B Natriuret Pep (<450) pg/mL Total Protein (6.3-8.2) g/dL Albumin (3.5-5.0) g/dL Globulin (1.7-4.1) g/dL Albumin/Globulin Ratio (1.0-2.8) Lipase (23-300) U/L Procalcitonin (<0.5) ng/mL Urine RBC 1-5/hpf (0-5/HPF) Urine WBC None seen (0-5/HPF) Amorphous Sediment 1+ Urine Bacteria None seen (None) Urine Mucus 1+ H (Negative) Ur Culture Indicated? Cult not indicated Chlamy pneumoniae PCR (Not Detect) Adenovirus (PCR) (Not Detect) B. pertussis DNA (PCR) (Not Detecte) B.parapertussis DNA PCR (Not Detecte) Coronavirus OC43 (PCR) (Not Detect) Coronavirus HKU1 (PCR) (Not Detect) Coronavirus 229E (PCR) (Not Detect) SARS-CoV-2 (PCR) (Not Detecte) Coronavirus NL63 (PCR) (Not Detect) Human Metapneumovir PCR (Not Detect) Influenza Type A (PCR) (Not Detect) Influenza Type B (PCR) (Not Detect) M. pneumoniae (PCR) (Not Detect) Parainfluenza 1 (PCR) (Not Detect) Parainfluenza 2 (PCR) (Not Detect) Parainfluenza 3 (PCR) (Not Detect) Parainfluenza 4 (PCR) (Not Detect) RSV (PCR) (Not Detect) Entero/Rhino (PCR) (Not Detect) Urine Dip Bedside Urine Glucose Negative Bedside Urine Bilirubin - Negative Bedside Urine Ketone +++ 80 Urine Specific [place] 1.015 Bedside Urine Occult Blood - Negative Bedside Urine pH 6.0 Bedside Urine Protein + 30 Bedside Urine Urobilinogen - Negative Bedside Urine Nitrite - Negative Bedside Urine Leukocytes - Negative Esterase Discharge Plan Departure Patient Disposition: Home Clinical Impression: Infection due to human metapneumovirus (hMPV) Instructions: DI for Viral Upper Respiratory Infection -- Adult Activity Restrictions/Additional Instructions: You were evaluated in the ED today for fever, cough. Your respiratory panel sh ows that you have a human metapneumovirus infection, which is a upper respiratory infection. Your chest x-ray, EKG, urine were normal. Your white count appear to be high, likely due to your fighting the infection. You were given some IV antibiotics and fluids due to initial concern for sepsis. Your CT of the chest, abdomen, pelvis did not show an infectious cause, however did show some nodules in your lungs. Please follow-up with your PCP to monitor these nodules and further evaluation. Please continue to stay well hydrated. Please follow the BRAT diet which consists of constipating foods such as bread, rice, apples, toast, as this will help with your diarrhea. You are being prescribed Tessalon Perles for your cough. Return to the ED if you have any chest pain, trouble breathing, are unable to keep down fluids. Prescriptions: New benzonatate 200 mg capsule 200 mg PO TID PRN (Reason: cough) Qty: 30 0RF No Action nitroglycerin 0.3 mg tablet, sublingual 0.3 mg sublingual Q5M PRN Rx Instructions: do not exceed 3 doses per episode multivitamin Tablet 1 tab PO DAILY omega-3 fatty acids [Fish Oil Concentrate] 1,000 mg capsule 1,000 mg PO DAILY Referrals: Ismael Quiroga MD [Primary Care Provider] - Stand Alone Forms: Patient Portal/API <Artur Camacho DO - Last Filed: 04/25/22 07:33> Cosign ED Attending Cosignature Attestation: Dr Camacho Co-Sign Statement: I was available for consultation during this patient's emergency department visit. This chart is signed by myself for administrative purposes only. I did not have direct contact with this patient during this visit. They were seen independently by the APC.
[2022-04-18 16:19] VITALS: BP 129/70; PULSE 103; RESP 18; O2SAT 95
--- NOTE | 2022-04-18 16:51 | PC.NURSE ---
Patient had received 1L NS bolus prior to sepsis bolus order. Gave 837 of sepsis bolus for full bolus amount between the two orders per provider to prevent fluid overload.
[2022-04-18 17:17] VITALS: BP 130/64; PULSE 98; RESP 20; O2SAT 93
== END 2022-04-18 17:18 | disposition home or self-care (01) ==
PROVIDERS: Emergency Medicine; Emergency Provider Student in an Organized Health Care Education/Training Program; PCP Student in an Organized Health Care Education/Training Program
DX: J06.9 Acute upper respiratory infection, unspecified (principal); B97.81 Human metapneumovirus as the cause of diseases classified elsewhere; R06.00 Dyspnea, unspecified; Z20.822 Contact with and (suspected) exposure to COVID-19
CPT/HCPCS: 36415; 71045; 71260; 74177; 80053; 81003; 81015; 82550; 82553; 83605; 83690; 83880; 84145; 84484; 85025; 85610; 85730; 87040; 87633; 96361; 96365; 96367; 99284; 99285; J2543; Q9967

== ENCOUNTER → 2022-06-02 10:38 | Outpatient (CLI) | payer MEDICARE, OTHER, SELFPAY ==
--- NOTE | 2022-06-03 02:15 | DI.NM.S_ITS ---
DATE OF SERVICE: 06/02/2022 PROCEDURE: Pharmacological perfusion study. INDICATIONS: Known coronary artery disease. Details not available. Perfusion study for risk stratification. RADIOPHARMACEUTICAL: 25.8 millicurie technetium-99m Myoview IV was injected at stress and 12.0 millicurie technetium-99m Myoview IV was injected at rest. CARDIAC STRESS: The patient underwent IV Lexiscan perfusion study under the supervision of an attending staff. The patient received IV Lexiscan as per protocol. Resting blood pressure 115/76 mmHg. Mild shortness of breath. No chest pain. Baseline rhythm sinus. During stress, no convincing ischemic changes seen. No significant arrhythmias seen. RAW DATA: There is increased subdiaphragmatic activity. Gut shadow seen at the level of heart. Suspect hiatal hernia. GATED STUDY: Resting LV ejection fraction 78 and stress LV ejection fraction 90% without any wall motion abnormalities. Resting end-diastolic volume 58 mL. TID ratio 1.00, which is within normal limits. Lung/heart ratio 0.30, which is within normal limits. MYOCARDIAL PERFUSION SCAN: Stress supine, resting supine, and stress prone images were compared to each other. Stress supine and stress prone images revealed normal myocardial perfusion. On resting supine images, there is a mildly decreased perfusion of distal inferior wall. CONCLUSION: I will call this study a normal myocardial perfusion study, as stress supine and stress prone images revealed normal myocardial perfusion. There is a gut shadow at the level of the heart in the chest. Suspect hiatal hernia. Preserved left ventricular function. As far as perfusion scan is concerned, this is a low-risk myocardial perfusion scan. Bruce Soares - Jodie/maureen doc#: [id number]/job#: [id number] dd: 06/02/2022 17:08:00 dt: 06/03/2022 02:10:00 DICTATING MD/COPIES TO: Adelfo Cerda MD COPIES MNE: JIM;
== END ==
PROVIDERS: PCP Student in an Organized Health Care Education/Training Program; Referring Provider Student in an Organized Health Care Education/Training Program; Visit Provider Student in an Organized Health Care Education/Training Program
DX: I25.118 Atherosclerotic heart disease of native coronary artery with other forms of angina pectoris (principal)
CPT/HCPCS: 78452; 93017; A9502; J2785

== ENCOUNTER → 2022-09-22 16:34 | Outpatient (CLI) | payer MEDICARE, OTHER, SELFPAY ==
[2022-09-22 17:35] LABS: Hemoglobin A1C% w Est Avg Glu > 14.0 % (4.0-6.0)
[2022-09-22 17:39] LABS: Hematocrit 38.5 % (41-53); Hemoglobin 12.7 g/dL (13.5-17.5); Mean Corpuscular HGB Conc 32.9 % (30-36); Mean Corpuscular Hemoglobin 31.1 PG (26-34); Mean Corpuscular Volume 94.4 fL (80-100); Platelet Count 175 X10^3/uL (150-400); Red Blood Cell Count 4.08 X10^6/uL (4.5-5.9); Red Cell Distribution Width 13.7 % (11.6-14.8); White Blood Cell Count 19.3 X10^3/uL (4.5-11.0)
[2022-09-22 17:42] LABS: Add Manual Diff / Slide Review YES
[2022-09-22 17:50] LABS: Appearance Urine UA CLEAR; Bilirubin Urine UA NEGATIVE (NEGATIVE); Color Urine UA YELLOW; Glucose Urine UA 3+ g/dL (Negative); Ketones Urine UA 1+ (NEGATIVE); Leukocyte Esterase Urine UA NEGATIVE (NEGATIVE); Nitrite Urine UA NEGATIVE (Negative); Occult Blood Urine UA NEGATIVE (Negative); Protein Urine UA NEGATIVE (Negative); Urobilinogen Urine UA 0.2 E.U./dL (0.2)
[2022-09-22 17:54] LABS: Alanine Aminotransferase 39 IU/L (<50); Albumin Globulin Ratio 1.5 (1.0-2.8); Alkaline Phosphatase 106 U/L (38-126); Aspartate Aminotransferase 40 IU/L (17-59); BUN Creatinine Ratio 14.1 (6-22); Bilirubin Total 0.6 mg/dL (0.2-1.3); Blood Urea Nitrogen 9 mg/dL (9-20); Calcium 8.6 mg/dL (8.4-10.2); Carbon Dioxide 30 mmol/L (22-32); Chloride 89 mmol/L (98-107); Estimated Glomerular Filt Rate > 60 mL/min (>60); Globulin 2.6 g/dL (1.7-4.1); HEMOLYSIS < 15 (0-50); Lipase 21 U/L (23-300); Potassium 3.9 mmol/L (3.4-5.1); Sodium 126 mmol/L (137-145); Total Protein 6.6 g/dL (6.3-8.2)
[2022-09-22 17:56] LABS: Neutrophils Absolute Manual 4246 /uL (3000-5900); Total Cells Counted 100
[2022-09-22 17:57] LABS: RBC Morphology Norm
[2022-09-22 17:58] LABS: Erythrocyte Sedimentation Rate 13 MM/HR (0-15)
[2022-09-22 18:03] LABS: Bacteria Urine None Seen; Culture Indicated Urine Cult Not Indicated; Prealbumin 16.8 mg/dL (17.6-36.0); RBC Urine None Seen (0-5/HPF); Squamous Epithelial Cell Urine 0-1 /HPF (0-5/HPF); WBC Urine None Seen (0-5/HPF)
[2022-09-22 18:04] LABS: Transferrin 177 mg/dL (206-381)
[2022-09-22 18:25] LABS: Prostate Specific Antigen Scrn 2.31 ng/mL (0.1-4.0)
[2022-09-22 18:39] LABS: HIV 1 & 2 Ab/Ag 4th Gen Combo NEGATIVE (NEGATIVE)
[2022-09-22 18:44] LABS: Vitamin B12 Reflex MMA if <400 619 pg/mL (239-931)
[2022-09-22 18:51] LABS: Glucose 545 mg/dL (80-110)
[2022-09-22 21:04] LABS: Smudge Cells 3+
[2022-09-23 13:36] LABS: Cancer (Carbohydrate) Ag 19-9 15 U/mL (0-35)
== END ==
PROVIDERS: PCP Family Medicine; Referring Provider Pediatrics; Visit Provider Pediatrics
DX: I25.10 Atherosclerotic heart disease of native coronary artery without angina pectoris (principal); K85.90 Acute pancreatitis without necrosis or infection, unspecified; Z12.5 Encounter for screening for malignant neoplasm of prostate; J43.2 Centrilobular emphysema; M47.816 Spondylosis without myelopathy or radiculopathy, lumbar region; R63.0 Anorexia
CPT/HCPCS: 36415; 80053; 81001; 82378; 82607; 83036; 83690; 84134; 84466; 85007; 85025; 85651; 86301; 87389; G0103

== ENCOUNTER 2022-09-22 19:06 | Emergency (ER) | payer MEDICARE, OTHER, SELFPAY ==
[2022-09-22 19:13] VITALS: BP 121/66; PULSE 88; RESP 18; TEMP 36.6; O2SAT 98; BMI 18.8
--- NOTE | 2022-09-22 19:56 | ED_ITS ---
HPI - General Adult General Chief complaint: Diabetic Problem Stated complaint: sent by MD for bs in 500's Time Seen by Provider: 09/22/22 19:33 Source: patient Mode of arrival: Ambulatory Limitations: no limitations History of Present Illness HPI narrative: Patient is a 77-year-old male who was sent to the emergency department for evaluation of an elevated blood glucose level. Patient states he has no prior history of diabetes. He does have a history of pancreatitis. He is not on metformin. He had labs drawn today as an outpatient by his primary doctor. He is lost quite a bit of weight over the past several weeks/months. Has also had an increase in his urine output. Otherwise he feels well. No fevers. No chest pain, shortness of breath, abdominal pain. No blood in his urine. No change in bowel habits. Related Data Home Medications Medication Instructions Recorded Confirmed multivitamin 1 tab PO DAILY 07/22/20 09/22/22 omega-3 fatty acids 1,000 mg 1,000 mg PO DAILY 07/22/20 09/22/22 capsule (Fish Oil Concentrate) nitroglycerin 0.3 mg sublingual 0.3 mg sublingual Q5M PRN 09/07/21 09/22/22 tablet Previous Rx's Medication Instructions Recorded carisoprodol 350 mg tablet (Soma) 350 mg PO TID PRN muscle pain or 09/22/22 spasm #60 tabs metformin 500 mg tablet 500 mg PO BID #60 tabs 09/22/22 zolpidem 5 mg tablet (Ambien) 5 mg PO BEDTIME PRN insomnia #30 09/22/22 tabs Allergies Allergy/AdvReac Type Severity Reaction Status Date / Time ciprofloxacin [From Cipro] Allergy Unknown Verified 09/22/22 15:26 hydroxyzine [From Vistaril] Allergy Unknown Verified 09/22/22 15:26 metronidazole [From Flagyl] Allergy Unknown Verified 09/22/22 15:26 Penicillins Allergy Unknown Verified 09/22/22 15:26 promethazine AdvReac Intermediate Confusion Verified 09/22/22 15:26 levofloxacin [From Levaquin] AdvReac Mild Verified 09/22/22 15:26 Review of Systems Review of Systems ROS Unobtainable: All systems reviewed & are unremarkable except as noted in HPI and below Patient History Medical History Anemia (~2004) Anorexia Cataracts, bilateral (~2013) Chicken pox (~1951) Chronic back pain (~2011) Coronary artery disease (~2004) Direct inguinal hernia of right side Eczema (~1999) Kidney stones (~2004) Measles Mumps Osteoarthritis of lumbar spine Pancreas divisum of [place] pancreas Pancreatic cancer (~1999) Pancreatitis (~1999) Panic attacks Recurrent pancreatitis Shift work sleep disorder Shoulder pain (~2011) Skin cancer (~2004) Tinnitus (~2009) Surgical History Anesthesia History of cholecystectomy (~1999) History of right knee surgery (~2019) History of shoulder surgery (~1977) History of surgery (~2000) S/P left rotator cuff repair (~2013) Family History Father Cancer Mother Diabetes mellitus Dementia History of heart disease Hyperlipidemia Hypertension Mental health problem Stroke Gallstones Breast cancer Sister Overweight Sister Overweight Melanoma Knee problem Grandmother Cancer Hypertension Mental health problem Grandfather No problems noted. Grandmother History of heart disease Hypertension Stroke Son Mental health problem Depression PTSD (post-traumatic stress disorder) Social History marital status: unknown household members: none occupational status: previously employed Smoking Status: Former smoker alcohol intake: never Smoking Status: Former smoker Substance Use Type: does not use Exam Initial Vital Signs Initial Vital Signs: Vital Signs Temperature 97.9 F 09/22/22 19:13 Pulse Rate 88 09/22/22 19:13 Respiratory Rate 18 09/22/22 19:13 Blood Pressure 121/66 09/22/22 19:13 Pulse Oximetry 98 09/22/22 19:13 Oxygen Delivery Method Room Air 09/22/22 19:13 Const General: cooperative, comfortable and No ill appearing HENMT Head: normal to inspection and normocephalic Resp Effort & Inspection: normal respiratory effort Auscultation: clear to auscultation bilaterally Cardio Rate: regular rate Rhythm: regular rhythm GI Inspection: normal to inspection Palpation: soft and No tender Skin General: no rashes or lesions noted Neuro General: patient alert, patient awake, patient oriented x3 and moves all extremities Extrem General: normal to inspection and capillary refill normal Course Orders Ordered: Discontinued Medications Sodium Chloride (Normal Saline 0.9%) 1,000 mls @ 1,000 mls/hr IV BOLUS ONE Stop: 09/22/22 20:56 Last Infusion: 09/22/22 20:57 Dose: 0 mls/hr Documented By: Admin: 09/22/22 20:04 Dose: 1,000 mls/hr Documented By: SUE Metformin HCl (Metformin Hcl 500 Mg Tablet) 500 mg PO NOW ONE Stop: 09/22/22 21:45 Last Admin: 09/22/22 22:04 Dose: 500 mg Documented By: TAYLOR Vital Signs Vital signs: Vital Signs - 8 hr 09/22/22 19:13 Temperature 97.9 F Pulse Rate 88 Respiratory Rate 18 Blood Pressure 121/66 Pulse Oximetry 98 Oxygen Delivery Method Room Air Medical Decision Making Lab Data Lab results reviewed: Yes I reviewed the patient's lab results. 09/22/22 19:35 09/22/22 19:35 Labs: Lab Results 09/22/22 09/22/22 09/22/22 Range/Units 19:35 19:35 19:35 WBC 13.2 H (4.5-11.0) X10^3/uL RBC 3.89 L (4.5-5.9) X10^6/uL Hgb 12.2 L (13.5-17.5) g/dL Hct 37.0 L (41-53) % MCV 95.1 (80-100) fL MCH 31.3 (26-34) PG MCHC 32.9 (30-36) % RDW 13.8 (11.6-14.8) % Plt Count 152 (150-400) X10^3/uL Neut % (Auto) Not Reportable Lymph % (Auto) Not Reportable Randall % (Auto) Not Reportable Eos % (Auto) Not Reportable Baso % (Auto) Not Reportable Lymph # (Auto) Not Reportable Randall # (Auto) Not Reportable Baso # (Auto) Not Reportable Total Counted 100 Seg Neutrophils % 49.0 D (38-70) % Lymphocytes % (Manual) 49.0 H (25-45) % Monocytes % (Manual) 2.0 (2-11) % Neutrophils # (Manual) 6468 H (9161-5444) /uL Smudge Cells 3+ H Toxic Granulation Present H RBC Morphology Normal morphology Sodium 124 L (137-145) mmol/L Potassium 4.3 (3.4-5.1) mmol/L Chloride 85 L (98-107) mmol/L Carbon Dioxide 26 (22-32) mmol/L BUN 9 (9-20) mg/dL Creatinine 0.63 L (0.66-1.25) mg/dL Estimated GFR > 60 (>60) mL/min BUN/Creatinine Ratio 14.3 (6-22) Glucose 688 H* (80-110) mg/dL Calcium 7.8 L (8.4-10.2) mg/dL Phosphorus 3.5 (2.3-3.7) mg/dL Magnesium 1.9 (1.6-2.3) mg/dL Total Bilirubin 0.6 (0.2-1.3) mg/dL AST 42 (17-59) IU/L ALT 37 (<50) IU/L Alkaline Phosphatase 103 (38-126) U/L Total Protein 6.6 (6.3-8.2) g/dL Albumin 3.9 (3.5-5.0) g/dL Globulin 2.7 (1.7-4.1) g/dL Albumin/Globulin Ratio 1.4 (1.0-2.8) Lipase 30 (23-300) U/L Urine Dip Bedside Urine Glucose 500 mg/dl Bedside Urine Bilirubin - Negative Bedside Urine Ketone +/- 5 Urine Specific [place] 1.005 Bedside Urine Occult Blood - Negative Bedside Urine pH 6.0 Bedside Urine Protein - Negative Bedside Urine Urobilinogen - Negative Bedside Urine Nitrite - Negative Bedside Urine Leukocytes - Negative Esterase Point of care testing: Urine Dip Bedside Urine Glucose 500 mg/dl Bedside Urine Bilirubin - Negative Bedside Urine Ketone +/- 5 Urine Specific [place] 1.005 Bedside Urine Occult Blood - Negative Bedside Urine pH 6.0 Bedside Urine Protein - Negative Bedside Urine Urobilinogen - Negative Bedside Urine Nitrite - Negative Bedside Urine Leukocytes - Negative Esterase MDM Narrative Medical decision making narrative: Patient is hyperglycemic but is not in DKA. Symptoms he presents with today been going on for the past several weeks. He is no history of diabetes. Patient was given fluids. Is tolerating oral intake. Plan will be to start the patient on metformin. He was given 1st dose here in the emergency department. Will have him contact his primary doctor arshorrow morning for follow-up as he is going to need more workup of his hyperglycemia and most likely need to be sta rted on insulin. There was no indication for admission to the hospital. Patient was given return precautions. He expressed understanding and agreement. Discharge Plan Departure Patient Disposition: Home Clinical Impression: Hyperglycemia Instructions: DI for Hyperglycemia -- Adult Activity Restrictions/Additional Instructions: I do recommend that tomorrow morning you contact your primary doctor's office for a follow-up for more workup. Start taking the new medication as directed. Return to the emergency department for new symptoms. Prescriptions: New metformin 500 mg tablet 500 mg PO BID Qty: 60 0RF No Action zolpidem [Ambien] 5 mg tablet 5 mg PO BEDTIME PRN (Reason: insomnia) Qty: 30 0RF Rx Instructions: limit as possible. call for refill when needed. carisoprodol [Soma] 350 mg tablet 350 mg PO TID PRN (Reason: muscle pain or spasm) Qty: 60 0RF Rx Instructions: limit as possible. stagger with other sedating meds. call for refill when needed. nitroglycerin 0.3 mg tablet, sublingual 0.3 mg sublingual Q5M PRN Rx Instructions: do not exceed 3 doses per episode multivitamin Tablet 1 tab PO DAILY omega-3 fatty acids [Fish Oil Concentrate] 1,000 mg capsule 1,000 mg PO DAILY Referrals: Aiden Evans DO [Primary Care Provider] - Stand Alone Forms: Patient Portal/API
[2022-09-22] MEDS: SODIUM CHLORIDE 0.9% 1,000 ML 1000 ML IV (20:04)
[2022-09-22 20:09] LABS: Alanine Aminotransferase 37 IU/L (<50); Albumin 3.9 g/dL (3.5-5.0); Albumin Globulin Ratio 1.4 (1.0-2.8); Alkaline Phosphatase 103 U/L (38-126); Aspartate Aminotransferase 42 IU/L (17-59); BUN Creatinine Ratio 14.3 (6-22); Bilirubin Total 0.6 mg/dL (0.2-1.3); Blood Urea Nitrogen 9 mg/dL (9-20); Calcium 7.8 mg/dL (8.4-10.2); Carbon Dioxide 26 mmol/L (22-32); Chloride 85 mmol/L (98-107); Estimated Glomerular Filt Rate > 60 mL/min (>60); Globulin 2.7 g/dL (1.7-4.1); HEMOLYSIS 21 (0-50); Lipase 30 U/L (23-300); Potassium 4.3 mmol/L (3.4-5.1); Sodium 124 mmol/L (137-145); Total Protein 6.6 g/dL (6.3-8.2)
[2022-09-22 20:10] LABS: Magnesium 1.9 mg/dL (1.6-2.3); Phosphorous 3.5 mg/dL (2.3-3.7)
[2022-09-22 20:21] LABS: Hemoglobin 12.2 g/dL (13.5-17.5); Mean Corpuscular HGB Conc 32.9 % (30-36); Mean Corpuscular Hemoglobin 31.3 PG (26-34); Mean Corpuscular Volume 95.1 fL (80-100); Platelet Count 152 X10^3/uL (150-400); Red Blood Cell Count 3.89 X10^6/uL (4.5-5.9); Red Cell Distribution Width 13.8 % (11.6-14.8); White Blood Cell Count 13.2 X10^3/uL (4.5-11.0)
[2022-09-22 20:23] LABS: Add Manual Diff / Slide Review YES
[2022-09-22 20:24] LABS: Glucose 688 mg/dL (80-110)
[2022-09-22 21:02] LABS: Neutrophils Absolute Manual 6468 /uL (3000-5900); RBC Morphology Normal Morphology; Smudge Cells 3+; Total Cells Counted 100
[2022-09-22 21:04] LABS: Toxic Granulation Present
[2022-09-22] MEDS: METFORMIN HCL 500 MG TABLET PO (22:04)
== END 2022-09-22 22:07 | disposition home or self-care (01) ==
PROVIDERS: Emergency Provider Emergency Medicine; PCP Family Medicine; Referring Provider Family Medicine
DX: E11.65 Type 2 diabetes mellitus with hyperglycemia (principal); Z79.899 Other long term (current) drug therapy; R79.89 Other specified abnormal findings of blood chemistry; R63.0 Anorexia; I25.10 Atherosclerotic heart disease of native coronary artery without angina pectoris; J43.2 Centrilobular emphysema; K85.90 Acute pancreatitis without necrosis or infection, unspecified; M47.816 Spondylosis without myelopathy or radiculopathy, lumbar region; Z12.5 Encounter for screening for malignant neoplasm of prostate
CPT/HCPCS: 36415; 80053; 81001; 81003; 82378; 82607; 83036; 83690; 83735; 84100; 84134; 84466; 85007; 85025; 85651; 86301; 87389; 96360; 99284; G0103

== ENCOUNTER → 2022-09-26 13:13 | Outpatient (CLI) | payer MEDICARE, OTHER, SELFPAY ==
[2022-09-26 13:43] LABS: Hematocrit 39.6 % (41-53); Hemoglobin 12.9 g/dL (13.5-17.5); Mean Corpuscular HGB Conc 32.6 % (30-36); Mean Corpuscular Hemoglobin 31.2 PG (26-34); Mean Corpuscular Volume 95.7 fL (80-100); Platelet Count 186 X10^3/uL (150-400); Red Blood Cell Count 4.14 X10^6/uL (4.5-5.9); Red Cell Distribution Width 13.7 % (11.6-14.8); White Blood Cell Count 22.4 X10^3/uL (4.5-11.0)
[2022-09-26 14:09] LABS: Add Manual Diff / Slide Review YES
[2022-09-26 14:16] LABS: Alanine Aminotransferase 29 IU/L (<50); Albumin 3.7 g/dL (3.5-5.0); Albumin Globulin Ratio 1.6 (1.0-2.8); Alkaline Phosphatase 104 U/L (38-126); Aspartate Aminotransferase 30 IU/L (17-59); BUN Creatinine Ratio 13.5 (6-22); Bilirubin Total 0.5 mg/dL (0.2-1.3); Blood Urea Nitrogen 10 mg/dL (9-20); Calcium 8.7 mg/dL (8.4-10.2); Carbon Dioxide 27 mmol/L (22-32); Chloride 94 mmol/L (98-107); Estimated Glomerular Filt Rate > 60 mL/min (>60); Globulin 2.3 g/dL (1.7-4.1); HEMOLYSIS < 15 (0-50); Potassium 4.4 mmol/L (3.4-5.1); Sodium 129 mmol/L (137-145)
[2022-09-26 14:17] LABS: Neutrophils Absolute Manual 8288 /uL (3000-5900); Total Cells Counted 100
[2022-09-26 14:18] LABS: RBC Morphology Normal Morphology
[2022-09-26 14:30] LABS: Glucose 513 mg/dL (80-110)
== END ==
PROVIDERS: Pediatrics; PCP Family Medicine; Referring Provider Family Medicine; Visit Provider Family Medicine
DX: R73.9 Hyperglycemia, unspecified (principal); D72.829 Elevated white blood cell count, unspecified
CPT/HCPCS: 36415; 80053; 85007; 85025

== ENCOUNTER → 2022-09-29 08:16 | Outpatient (CLI) | payer MEDICARE, OTHER, SELFPAY ==
[2022-09-29 09:17] LABS: Hematocrit 36.9 % (41-53); Hemoglobin 12.3 g/dL (13.5-17.5); Mean Corpuscular HGB Conc 33.4 % (30-36); Mean Corpuscular Hemoglobin 31.7 PG (26-34); Mean Corpuscular Volume 94.9 fL (80-100); Platelet Count 181 X10^3/uL (150-400); Red Blood Cell Count 3.89 X10^6/uL (4.5-5.9); Red Cell Distribution Width 13.5 % (11.6-14.8); White Blood Cell Count 21.5 X10^3/uL (4.5-11.0)
[2022-09-29 09:18] LABS: Add Manual Diff / Slide Review YES
[2022-09-29 09:39] LABS: Appearance Urine UA CLEAR; Bilirubin Urine UA NEGATIVE (NEGATIVE); Color Urine UA YELLOW; Glucose Urine UA TRACE g/dL (Negative); Ketones Urine UA TRACE (NEGATIVE); Leukocyte Esterase Urine UA NEGATIVE (NEGATIVE); Nitrite Urine UA NEGATIVE (Negative); Occult Blood Urine UA NEGATIVE (Negative); Protein Urine UA TRACE (Negative); Specific Gravity Urine UA 1.025 (1.000-1.035); Urobilinogen Urine UA 0.2 E.U./dL (0.2); pH Urine UA 5.5 (4.5-8.0)
[2022-09-29 09:48] LABS: Alanine Aminotransferase 25 IU/L (<50); Albumin 3.6 g/dL (3.5-5.0); Albumin Globulin Ratio 1.7 (1.0-2.8); Alkaline Phosphatase 75 U/L (38-126); Aspartate Aminotransferase 24 IU/L (17-59); BUN Creatinine Ratio 13.1 (6-22); Bilirubin Total 0.2 mg/dL (0.2-1.3); Blood Urea Nitrogen 8 mg/dL (9-20); Calcium 8.6 mg/dL (8.4-10.2); Carbon Dioxide 27 mmol/L (22-32); Chloride 97 mmol/L (98-107); Estimated Glomerular Filt Rate > 60 mL/min (>60); Globulin 2.1 g/dL (1.7-4.1); Glucose 314 mg/dL (80-110); HEMOLYSIS < 15 (0-50); Potassium 4.2 mmol/L (3.4-5.1); Sodium 130 mmol/L (137-145); Total Protein 5.7 g/dL (6.3-8.2)
[2022-09-29 09:54] LABS: Bacteria Urine None Seen; Calcium Oxalate Crystals Urine Few; Culture Indicated Urine Cult Not Indicated; Hyaline Casts Urine 5-10/LPF; RBC Urine 0-1/HPF (0-5/HPF); Squamous Epithelial Cell Urine None Seen (0-5/HPF); WBC Urine 0-1/HPF (0-5/HPF)
[2022-09-29 09:57] LABS: Neutrophils Absolute Manual 4515 /uL (3000-5900); Total Cells Counted 100
[2022-09-29 09:58] LABS: RBC Morphology Normal Morphology; Smudge Cells 2+
[2022-09-29 10:19] LABS: Creatinine Urine Random 133.7 mg/dL
[2022-09-29 10:24] LABS: Microalbumi Creatinin Ratio Ur 31.4 ug/mg CR (<30); Microalbumin Urine Random 4.2 mg/dL (0-1.6)
== END ==
PROVIDERS: PCP Family Medicine; Referring Provider Pediatrics; Visit Provider Pediatrics
DX: I25.118 Atherosclerotic heart disease of native coronary artery with other forms of angina pectoris (principal); E11.9 Type 2 diabetes mellitus without complications; D72.829 Elevated white blood cell count, unspecified; J12.3 Human metapneumovirus pneumonia; R91.8 Other nonspecific abnormal finding of lung field
CPT/HCPCS: 36415; 80053; 81001; 82043; 82570; 85007; 85025

== ENCOUNTER → 2022-09-29 10:56 | Outpatient (CLI) | payer MEDICARE, OTHER, SELFPAY ==
--- NOTE | 2022-09-29 11:01 | DI.RAD.S_ITS ---
PROCEDURE: XR CHEST 2V INDICATIONS: followup nodules TECHNIQUE: 2 views of the chest were acquired. COMPARISON: [facility], CR, XR CHEST 1V, 04/18/2022, 13:01. FINDINGS: Surgical changes and devices: None. Lungs and pleura: Lungs are clear. No pleural effusions or pneumothorax. Mediastinum: Mediastinal contours are normal. Heart size is normal. Bones and chest wall: No suspicious bony abnormalities. Soft tissues appear unremarkable. Redemonstration of multiple surgical landon seen over the mid abdomen. IMPRESSION: No acute cardiopulmonary process. Approved by: Deisi Rosenthal M.D. on 09/29/2022 at 18:43
== END ==
PROVIDERS: PCP Family Medicine; Referring Provider Pediatrics; Visit Provider Pediatrics
DX: D72.829 Elevated white blood cell count, unspecified (principal); E11.9 Type 2 diabetes mellitus without complications; R91.8 Other nonspecific abnormal finding of lung field; I25.118 Atherosclerotic heart disease of native coronary artery with other forms of angina pectoris; J12.3 Human metapneumovirus pneumonia
CPT/HCPCS: 36415; 71046; 80053; 81001; 82043; 82570; 85007; 85025

== ENCOUNTER 2022-11-29 11:16 | Day surgery (SDC) | payer MEDICARE, OTHER, SELFPAY ==
[2022-11-29 11:25] VITALS: BP 106/71; PULSE 96; RESP 16; TEMP 36.1; O2SAT 96; BMI 19.5
[2022-11-29] MEDS: LACTATED RINGERS 1,000 ML 150 ML IV (11:46)
--- NOTE | 2022-11-29 12:04 | PM.HP.1 ---
History of Present Illness History of Present Illness Date Patient Seen: 11/29/22 Time Patient Seen: 12:04 Chief complaint: SDC Narrative: 77-year-old man here for screening colonoscopy. Last colonoscopy 10 years ago. No family history of intestinal malignancy. He has a history of chronic pancreatitis has had significant weight loss recently no blood per rectum. [facility] Medical History (Updated 10/13/22 @ 15:33 by Aiden Evans DO) Insomnia Human metapneumovirus pneumonia Diabetes mellitus Leukocytosis Anorexia Eczema (~1999) Shoulder pain (~2011) Chronic back pain (~2011) Mumps Measles Chicken pox (~1951) Anemia (~2004) Tinnitus (~2009) Cataracts, bilateral (~2013) Kidney stones (~2004) Pancreatitis (~1999) Coronary artery disease (~2004) Skin cancer (~2004) Pancreatic cancer (~1999) Panic attacks Osteoarthritis of lumbar spine Recurrent pancreatitis Direct inguinal hernia of right side Pancreas divisum of [place] pancreas Shift work sleep disorder Surgical History Anesthesia History of right knee surgery (~2019) History of surgery (~2000) History of cholecystectomy (~1999) S/P left rotator cuff repair (~2013) History of shoulder surgery (~1977) Family History Father Cancer Mother Diabetes mellitus Dementia History of heart disease Hyperlipidemia Hypertension Mental health problem Stroke Gallstones Breast cancer Sister Overweight Sister Overweight Melanoma Knee problem Grandmother Cancer Hypertension Mental health problem Grandfather No problems noted. Grandmother History of heart disease Hypertension Stroke Son Mental health problem Depression PTSD (post-traumatic stress disorder) Social History marital status: unknown household members: family occupational status: previously employed Smoking Status: Former smoker alcohol intake: never Meds Home Medications and Allergies Home Medications Medication Instructions Recorded Confirmed Type omega-3 fatty acids 1,000 mg 1,000 mg PO DAILY 07/22/20 11/29/22 History capsule (Fish Oil Concentrate) carisoprodol 350 mg tablet (Soma) 350 mg PO TID PRN muscle pain or 09/22/22 11/29/22 Rx spasm #60 tabs finasteride 5 mg tablet 5 mg PO DAILY enlarged prostate 09/29/22 11/29/22 Rx symptoms #30 tabs metformin 1,000 mg tablet 1,000 mg PO BID #180 tabs 09/29/22 11/29/22 Rx zolpidem 5 mg tablet (Ambien) 5 mg PO BEDTIME PRN insomnia #30 10/25/22 11/29/22 Rx tabs adhesive bandage (Band-Aid Clear #50 ea 11/03/22 Rx Spots bandage) alcohol swabs (Alcohol Prep Pads) See Rx Instructions .Route 11/03/22 Rx .COMPLEX #100 ea blood sugar diagnostic (Accu-Chek #100 ea 11/03/22 Rx Mayra Plus test strips) blood-glucose meter #1 ea 11/03/22 Rx lancets 28 gauge ([place] Mini #100 ea 11/03/22 Rx Safety Lancets) sodium,potassium,mag sulfates 17.5 See Rx Instructions PO .COMPLEX 11/28/22 11/29/22 Rx gram-3.13 gram-1.6 gram oral soln #354 mL (Suprep Bowel Prep Kit) Allergies Allergy/AdvReac Type Severity Reaction Status Date / Time ciprofloxacin [From Cipro] Allergy Unknown Verified 10/13/22 10:22 hydroxyzine [From Vistaril] Allergy Unknown Verified 10/13/22 10:22 Penicillins Allergy Unknown Verified 10/13/22 10:22 promethazine AdvReac Intermediate Confusion Verified 10/13/22 10:22 levofloxacin [From Levaquin] AdvReac Mild Verified 10/13/22 10:22 Exam Vital Signs (past 8 hours): - 11/29/22 11:25 Temperature 97 F L Pulse Rate 96 H Respiratory Rate 16 Blood Pressure 106/71 Pulse Oximetry 96 Oxygen Delivery Method Room Air Oxygen Delivery Method Room Air Narrative Exam Narrative: General adult male alert oriented no acute distress Chest nonlabored respiration Extremities warm well perfused Assessment & Plan Assessment & Plan narrative: The patient requires colorectal screening and colonoscopy is recommended. Technical details were discussed. Risks, benefits, alternatives explained. Risks including but not limited to myocardial infarction, aspiration, bleeding, pain, missed lesion, incomplete examination, need for further radiographic studies, colonic perforation, and need for major abdominal surgery were discussed. All questions were answered to their satisfaction, and they are in agreement with this plan.
[2022-11-29 12:29] VITALS: BP 88/53; PULSE 92; RESP 15; TEMP 36.1; O2SAT 93
[2022-11-29 12:32] VITALS: BP 90/55; PULSE 82; RESP 16; TEMP 36.1; O2SAT 94
[2022-11-29 12:37] VITALS: BP 99/60; PULSE 90; RESP 16; O2SAT 94
[2022-11-29 12:42] VITALS: BP 92/57; PULSE 84; RESP 14; TEMP 36.2; O2SAT 98
--- NOTE | 2022-11-29 12:43 | P.OP.COLON_ITS ---
Operative Date/Time/Diagnoses Date of procedure: 11/29/22 Time of procedure: 12:43 Pre-op diagnosis: Colorectal screening Post-op diagnosis: same Procedure & Clinicians Study performed: Colonoscopy Same procedure as scheduled: Yes Indications: Colorectal screening Surgeon: Mariano Alejandre Procedure Notes Procedure in detail: The history and physical was performed/updated and the patient is ASA class is 2. The procedure was discussed in detail with the patient. Potential risks complications including infection, bleeding, missed diagnosis, perforation, need for surgery, and were explained. Their questions were answered and informed consent was obtained. Patient was brought to the procedure room and placed standard monitoring equipment. The patient's vital signs were monitored continuously throughout the entire procedure. Prior to starting time-out was performed. The patient was placed in the left lateral recumbent position. Procedural sedation was administered by anesthesia. Examination began with a thorough inspection of the perianal area there was no evidence of fissures, fistulae, external hemorrhoids or cutaneous malignancy. The colonoscopy scope was then placed into the anal canal and was advanced to the cecum, which was identified by the ileocecal valve, the appendiceal orifice and the confluence of the taenia. The scope was then slowly withdrawn examining colon thoroughly in all directions, irrigating it of any residual stool. The scope was retroflexed within the rectum The patient tolerated the procedure well. They will be discharged once criteria are met. The prep was of good/excellent quality. The withdrawl time was 7 minutes. FINDINGS * No masses or polyps. * Sigmoid-mild diverticulosis Specimen(s): none sent Impression: Normal colonoscopy Post-procedure Plan for aftercare: No further colonoscopy necessary unless symptomatic Disposition: same day surgery
== END 2022-11-29 12:59 | disposition home or self-care (01) ==
PROVIDERS: PCP Family Medicine; Referring Provider Surgery; Visit Provider Surgery
PROC: 0DJD8ZZ Inspection of Lower Intestinal Tract, Via Natural or Artificial Opening Endoscopic (ICD-10-PCS; CPT 45378; principal; 2022-11-29 12:30)
DX: Z12.11 Encounter for screening for malignant neoplasm of colon (principal); K57.30 Diverticulosis of large intestine without perforation or abscess without bleeding
CPT/HCPCS: G0121; J2704

== ENCOUNTER → 2022-12-27 16:46 | Outpatient (CLI) | payer MEDICARE, OTHER, SELFPAY ==
[2022-12-27 17:20] LABS: Hematocrit 40.4 % (41-53); Hemoglobin 13.5 g/dL (13.5-17.5); Mean Corpuscular HGB Conc 33.4 % (30-36); Mean Corpuscular Hemoglobin 31.7 PG (26-34); Mean Corpuscular Volume 94.6 fL (80-100); Platelet Count 169 X10^3/uL (150-400); Red Blood Cell Count 4.27 X10^6/uL (4.5-5.9); Red Cell Distribution Width 13.6 % (11.6-14.8); White Blood Cell Count 21.1 X10^3/uL (4.5-11.0)
[2022-12-27 17:22] LABS: Add Manual Diff / Slide Review YES
[2022-12-27 17:28] LABS: Hemoglobin A1C% w Est Avg Glu 9.6 % (4.0-6.0)
[2022-12-27 17:33] LABS: Neutrophils Absolute Manual 3587 /uL (3000-5900); RBC Morphology Normal Morphology; Total Cells Counted 100
[2022-12-27 18:07] LABS: Creatinine Urine Random 155.3 mg/dL
[2022-12-27 18:12] LABS: Alanine Aminotransferase 44 IU/L (<50); Albumin 4.6 g/dL (3.5-5.0); Albumin Globulin Ratio 1.3 (1.0-2.8); Alkaline Phosphatase 67 U/L (38-126); Aspartate Aminotransferase 37 IU/L (17-59); Bilirubin Total 0.5 mg/dL (0.2-1.3); Blood Urea Nitrogen 23 mg/dL (9-20); Calcium 9.5 mg/dL (8.4-10.2); Carbon Dioxide 31 mmol/L (22-32); Chloride 98 mmol/L (98-107); Estimated Glomerular Filt Rate > 60 mL/min (>60); Globulin 3.5 g/dL (1.7-4.1); Glucose 113 mg/dL (80-110); HEMOLYSIS < 15 (0-50); Microalbumin Urine Random < 0.6 mg/dL (0-1.6); Potassium 4.2 mmol/L (3.4-5.1); Sodium 137 mmol/L (137-145); Total Protein 8.1 g/dL (6.3-8.2)
== END ==
PROVIDERS: PCP Family Medicine; Referring Provider Family Medicine; Visit Provider Family Medicine
DX: E11.9 Type 2 diabetes mellitus without complications (principal); D72.829 Elevated white blood cell count, unspecified
CPT/HCPCS: 80053; 82043; 82570; 83036; 85007; 85025

== ENCOUNTER → 2023-04-21 16:19 | Outpatient (CLI) | payer OTHER, SELFPAY ==
--- NOTE | 2023-04-21 16:23 | DI.MRI.S_ITS ---
PROCEDURE: MR ANKLE LT WO CON INDICATIONS: Plantar fascial fibromatosis TECHNIQUE: Noncontrast sagittal T1 spin echo and T2 fast spin echo with fat saturation, axial proton density fast spin echo and T2 fast spin echo with fat saturation, coronal T1 spin echo and T2 fast spin echo with fat saturation through the ankle/hindfoot. Additional fat suppressed T2 fast spin echo sequences were obtained through the forefoot in the sagittal and axial planes. COMPARISON: [facility], CR, XR FOOT 1 OR 2 VIEWS WEIGHT BEARING LEFT, 04/04/2023, 14:33. FINDINGS: Image quality: Excellent. Bones and joints: Mild osseous edema is seen within the posterior calcaneal apophysis. No acute osseous fracture. No hindfoot coalitions. No osteochondral injuries of the talar dome. Mild subchondral edema is seen at the calcaneocuboid joint. Bones of the forefoot demonstrate no acute osseous edema. Medial structures: The deltoid ligament and the spring ligament complex are intact. The posterior tibialis, flexor digitorum longus, and flexor hallucis longus tendons are intact. The posterior tibial neurovascular bundle appears normal within the tarsal tunnel, without extrinsic mass effect. Lateral structures: Remote prior low-grade sprains of the anterior talofibular ligament and the calcaneofibular ligament. The posterior talofibular ligament is intact. The anterior and posterior tibiofibular ligaments are intact. Mild peroneus brevis and longus tendinosis. The sinus tarsi demonstrates normal fatty signal. Anterior structures: The tibialis anterior, extensor hallucis longus, and extensor digitorum longus tendons appear intact. The dorsal talonavicular ligament appears intact. Posterior and plantar structures: Mild Achilles tendinosis. Mild thickening of the proximal plantar fascia with intermediate intrasubstance signal and adjacent osseous edema. No well-defined fascial tear is seen. The plantar fascia appears to be intact within the midfoot and forefoot. No abductor digiti minimi muscle atrophy to suggest [place] neuropathy. IMPRESSION: 1. Mild to moderate thickening and intermediate signal intensity within the proximal plantar fascia is suspicious for acute on chronic plantar fasciitis. No acute fascial tear identified. No focal plantar fascial fibroma is seen. 2. Mild Achilles tendinosis. 3. Mild osseous edema throughout the posterior calcaneal apophysis is likely related to mild traction trabecular bone injury or a mild osseous contusion. No fracture line is seen. 4. Remote prior low-grade sprains of the anterior talofibular ligament and the calcaneofibular ligament. 5. Mild peroneus brevis and longus tendinosis. 6. Mild mild degenerative changes at the calcaneocuboid articulation. Approved by: Ananda Pete M.D. on 04/24/2023 at 9:20
== END ==
PROVIDERS: PCP Family Medicine; Referring Provider Orthopaedic Surgery Foot and Ankle Surgery; Visit Provider Orthopaedic Surgery Foot and Ankle Surgery
DX: M72.2 Plantar fascial fibromatosis (principal); S93.492S Sprain of other ligament of left ankle, sequela; S93.412S Sprain of calcaneofibular ligament of left ankle, sequela
CPT/HCPCS: 73721

== ENCOUNTER → 2023-06-06 14:25 | Outpatient (CLI) | payer OTHER, SELFPAY ==
[2023-06-06 15:17] LABS: BUN Creatinine Ratio 20.2 (6-22); Blood Urea Nitrogen 19 mg/dL (9-20); Calcium 9.1 mg/dL (8.4-10.2); Carbon Dioxide 33 mmol/L (22-32); Chloride 103 mmol/L (98-107); Estimated Glomerular Filt Rate > 60 mL/min (>60); Glucose 105 mg/dL (80-110); HEMOLYSIS < 15 (0-50); Potassium 4.8 mmol/L (3.4-5.1); Sodium 140 mmol/L (137-145)
[2023-06-06 16:49] LABS: Hep C Virus Ab w/Reflex Quant NEGATIVE s/c (NEGATIVE)
== END ==
PROVIDERS: PCP Family Medicine; Referring Provider Family Medicine; Visit Provider Family Medicine
DX: Z11.59 Encounter for screening for other viral diseases (principal); E11.9 Type 2 diabetes mellitus without complications; E11.29 Type 2 diabetes mellitus with other diabetic kidney complication; R80.9 Proteinuria, unspecified
CPT/HCPCS: 80048; 83036; 86803

== ENCOUNTER → 2023-06-08 15:55 | Outpatient (CLI) | payer OTHER, SELFPAY ==
--- NOTE | 2023-06-08 15:56 | DI.CT.S_ITS ---
PROCEDURE: CT CHEST WO CON INDICATIONS: f/u on pulm nodules, CLL TECHNIQUE: Noncontrast 5 mm thick sections acquired from the pulmonary apices to the posterior costophrenic angles. 1 mm lung window, 5 mm thick coronal and sagittal and 7 mm axial MIP reformats were then acquired. For radiation dose reduction, the following was used: automated exposure control, adjustment of mA and/or kV according to patient size. COMPARISON: [facility], CT, CT CHEST ABD PEL W CON, 04/18/2022, 15:26. FINDINGS: Image quality: Diagnostic. Lower Neck: No enlarged lymph nodes. Thyroid: No thyroid nodules which require sonographic follow up, per consensus guidelines. Axillae: Stable prominent bilateral axillary lymph nodes. For instance, the 1.4 x 2.3 centimeter left level 1 node and the 2.4 x 0.6 centimeter right level 1 chain node, unchanged from prior (series 2, image 15). Chest Wall: Unremarkable. Bones: Unremarkable. Lungs and Pleura: No pneumothorax or pleural effusions. Calcified granuloma. Stable 5 millimeter juxtapleural nodule in the right middle lobe, location favoring a benign intrapulmonary lymph node. Heart: Heart size is normal. No pericardial effusion. Three-vessel coronary calcifications. Thoracic Vessels: The aorta and pulmonary arteries demonstrate normal size. Mediastinum and Maria E: No enlarged lymph nodes. Esophagus: No wall thickening. No hiatal hernia. Upper Abdomen: Visualized upper abdomen solid organs and bowel loops appear normal. IMPRESSION: Stable pulmonary nodules. Stable enlarged axillary chain lymph nodes. Three-vessel coronary calcifications. Dictated by: Kristian Delong M.D. on 06/08/2023 at 17:06 Approved by: Kristian Delong M.D. on 06/08/2023 at 17:09
== END ==
PROVIDERS: PCP Family Medicine; Referring Provider Family Medicine; Visit Provider Family Medicine
DX: C91.10 Chronic lymphocytic leukemia of B-cell type not having achieved remission (principal); R91.1 Solitary pulmonary nodule; E11.29 Type 2 diabetes mellitus with other diabetic kidney complication; R80.9 Proteinuria, unspecified; I25.10 Atherosclerotic heart disease of native coronary artery without angina pectoris
CPT/HCPCS: 71250

== ENCOUNTER → 2023-12-15 14:19 | Outpatient (CLI) | payer MEDICARE, OTHER, SELFPAY ==
[2023-12-15 15:07] LABS: Hemoglobin A1C% w Est Avg Glu 6.6 % (4.0-6.0)
[2023-12-15 15:27] LABS: BUN Creatinine Ratio 26.1 (6-22); Blood Urea Nitrogen 24 mg/dL (9-20); Calcium 9.1 mg/dL (8.4-10.2); Carbon Dioxide 29 mmol/L (22-32); Chloride 103 mmol/L (98-107); Estimated Glomerular Filt Rate > 60 mL/min (>60); Glucose 183 mg/dL (80-110); HEMOLYSIS < 15 (0-50); Potassium 4.6 mmol/L (3.4-5.1); Sodium 140 mmol/L (137-145)
== END ==
PROVIDERS: PCP Family Medicine; Referring Provider Family Medicine; Visit Provider Family Medicine
DX: E11.9 Type 2 diabetes mellitus without complications (principal); E11.29 Type 2 diabetes mellitus with other diabetic kidney complication; R80.9 Proteinuria, unspecified
CPT/HCPCS: 36415; 80048; 83036

== ENCOUNTER → 2024-03-19 14:47 | Outpatient (CLI) | payer MEDICARE, SELFPAY ==
[2024-03-19 15:28] LABS: Hematocrit 37.5 % (41-53); Hemoglobin 12.2 g/dL (13.5-17.5); Mean Corpuscular HGB Conc 32.5 % (30-36); Mean Corpuscular Hemoglobin 30.6 PG (26-34); Mean Corpuscular Volume 94.2 fL (80-100); Platelet Count 126 X10^3/uL (150-400); Red Blood Cell Count 3.98 X10^6/uL (4.5-5.9); Red Cell Distribution Width 14.3 % (11.6-14.8); White Blood Cell Count 17.7 X10^3/uL (4.5-11.0)
[2024-03-19 15:33] LABS: Add Manual Diff / Slide Review YES
[2024-03-19 15:49] LABS: Alanine Aminotransferase 28 IU/L (<50); Albumin 4.2 g/dL (3.5-5.0); Albumin Globulin Ratio 1.7 (1.0-2.8); Alkaline Phosphatase 74 U/L (38-126); Aspartate Aminotransferase 29 IU/L (17-59); BUN Creatinine Ratio 13.3 (6-22); Bilirubin Total 0.3 mg/dL (0.2-1.3); Blood Urea Nitrogen 15 mg/dL (9-20); Calcium 9.2 mg/dL (8.4-10.2); Carbon Dioxide 29 mmol/L (22-32); Chloride 102 mmol/L (98-107); Estimated Glomerular Filt Rate > 60 mL/min (>60); Globulin 2.5 g/dL (1.7-4.1); Glucose 161 mg/dL (80-110); HEMOLYSIS < 15 (0-50); Potassium 3.9 mmol/L (3.4-5.1); Sodium 137 mmol/L (137-145); Total Protein 6.7 g/dL (6.3-8.2)
[2024-03-19 16:09] LABS: Neutrophils Absolute Manual 2301 /uL (3000-5900); Total Cells Counted 100
[2024-03-19 16:11] LABS: RBC Morphology Normal Morphology
[2024-03-19 16:22] LABS: Prostate Specific Antigen 3.86 ng/mL (0.10-4.00)
== END ==
PROVIDERS: PCP Family Medicine; Referring Provider Internal Medicine Hematology & Oncology; Visit Provider Internal Medicine Hematology & Oncology
DX: C61 Malignant neoplasm of prostate (principal)
CPT/HCPCS: 36415; 80053; 84153; 85007; 85025

== ENCOUNTER → 2024-04-22 16:00 | Outpatient (CLI) | payer MEDICARE, SELFPAY ==
[2024-04-22 16:56] LABS: Add Manual Diff / Slide Review YES; Hematocrit 36.5 % (41-53); Hemoglobin 12.1 g/dL (13.5-17.5); Mean Corpuscular HGB Conc 33.1 % (30-36); Mean Corpuscular Hemoglobin 30.9 PG (26-34); Mean Corpuscular Volume 93.6 fL (80-100); Platelet Count 125 X10^3/uL (150-400); Red Cell Distribution Width 13.6 % (11.6-14.8); White Blood Cell Count 21.5 X10^3/uL (4.5-11.0)
[2024-04-22 17:14] LABS: Neutrophils Absolute Manual 6020 /uL (3000-5900); RBC Morphology Normal Morphology; Total Cells Counted 100
[2024-04-22 17:15] LABS: Alanine Aminotransferase 27 IU/L (<50); Albumin 4.1 g/dL (3.5-5.0); Albumin Globulin Ratio 1.7 (1.0-2.8); Alkaline Phosphatase 70 U/L (38-126); Aspartate Aminotransferase 27 IU/L (17-59); BUN Creatinine Ratio 18.1 (6-22); Bilirubin Total 0.2 mg/dL (0.2-1.3); Blood Urea Nitrogen 21 mg/dL (9-20); Calcium 8.7 mg/dL (8.4-10.2); Carbon Dioxide 32 mmol/L (22-32); Chloride 100 mmol/L (98-107); Estimated Glomerular Filt Rate > 60 mL/min (>60); Globulin 2.4 g/dL (1.7-4.1); Glucose 106 mg/dL (80-110); HEMOLYSIS < 15 (0-50); Potassium 4.1 mmol/L (3.4-5.1); Sodium 139 mmol/L (137-145); Total Protein 6.5 g/dL (6.3-8.2)
[2024-04-22 17:38] LABS: Carcinoembryonic Antigen 4.3 ng/mL (0.1-3.0)
== END ==
PROVIDERS: PCP Family Medicine; Referring Provider Internal Medicine Hematology & Oncology; Visit Provider Internal Medicine Hematology & Oncology
DX: R97.0 Elevated carcinoembryonic antigen [CEA] (principal); C61 Malignant neoplasm of prostate
CPT/HCPCS: 36415; 80053; 82378; 84153; 85007; 85025

== ENCOUNTER → 2024-10-25 15:21 | Outpatient (CLI) | payer MEDICARE, SELFPAY ==
[2024-10-25 16:25] LABS: Add Manual Diff / Slide Review NO; Hematocrit 35.0 % (41-53); Hemoglobin 11.8 g/dL (13.5-17.5); Lymphocytes Absolute Auto 5600 /uL (1100-4500); Mean Corpuscular HGB Conc 33.8 % (30-36); Mean Corpuscular Hemoglobin 31.5 PG (26-34); Mean Corpuscular Volume 93.3 fL (80-100); Platelet Count 97 X10^3/uL (150-400)
[2024-10-25 16:49] LABS: Alanine Aminotransferase 14 IU/L (<50); Albumin 4.0 g/dL (3.5-5.0); Albumin Globulin Ratio 1.6 (1.0-2.8); Alkaline Phosphatase 70 U/L (38-126); Blood Urea Nitrogen 21 mg/dL (9-20); Calcium 8.8 mg/dL (8.4-10.2); Carbon Dioxide 31 mmol/L (22-32); Chloride 102 mmol/L (98-107); Estimated Glomerular Filt Rate > 60 mL/min (>60); Globulin 2.5 g/dL (1.7-4.1); Glucose 181 mg/dL (70-99); HEMOLYSIS < 15 (0-50); Potassium 4.0 mmol/L (3.4-5.1); Sodium 140 mmol/L (137-145); Total Protein 6.5 g/dL (6.3-8.2)
[2024-10-25 17:19] LABS: Prostate Specific Antigen < 0.064 ng/mL (0.10-4.00)
== END ==
PROVIDERS: PCP Family Medicine; Referring Provider Internal Medicine Hematology & Oncology; Visit Provider Internal Medicine Hematology & Oncology
DX: C61 Malignant neoplasm of prostate (principal)
CPT/HCPCS: 36415; 80053; 84153; 85025

== ENCOUNTER → 2024-12-16 14:52 | Outpatient (CLI) | payer MEDICARE, SELFPAY ==
[2024-12-16 16:51] LABS: Prostate Specific Antigen < 0.064 ng/mL (0.10-4.00)
== END ==
PROVIDERS: PCP Family Medicine
DX: C61 Malignant neoplasm of prostate (principal)
CPT/HCPCS: 36415; 84153

== ENCOUNTER → 2025-01-24 12:02 | Outpatient (CLI) | payer MEDICARE, OTHER, SELFPAY ==
[2025-01-24 13:04] LABS: Hemoglobin A1C% w Est Avg Glu 6.8 % (4.0-6.0)
[2025-01-24 13:09] LABS: Blood Urea Nitrogen 22 mg/dL (9-20); Calcium 8.8 mg/dL (8.4-10.2); Carbon Dioxide 29 mmol/L (22-32); Chloride 99 mmol/L (98-107); Cholesterol 171 mg/dL (140-199); Estimated Glomerular Filt Rate > 60 mL/min (>60); Glucose 99 mg/dL (70-99); HDL Cholesterol 63 mg/dL (40-60); HEMOLYSIS < 15 (0-50); Potassium 4.4 mmol/L (3.4-5.1); Sodium 136 mmol/L (137-145); Triglycerides 103 mg/dL (35-150)
[2025-01-24 14:11] LABS: Microalbumi Creatinin Ratio Ur 4.0 ug/mg CR (<30)
== END ==
PROVIDERS: PCP Family Medicine; Referring Provider Family Medicine; Visit Provider Family Medicine
DX: Z00.00 Encounter for general adult medical examination without abnormal findings (principal); E11.65 Type 2 diabetes mellitus with hyperglycemia; C91.10 Chronic lymphocytic leukemia of B-cell type not having achieved remission; G47.00 Insomnia, unspecified; R80.9 Proteinuria, unspecified; E11.29 Type 2 diabetes mellitus with other diabetic kidney complication; J43.2 Centrilobular emphysema; Z79.4 Long term (current) use of insulin
CPT/HCPCS: 36415; 80048; 80061; 82043; 82172; 82570; 83036